=== PATIENT | male | born 1950 | race Caucasian/White ===

== ENCOUNTER 2019-04-06 10:11 | Inpatient (IN) | payer MEDICARE, OTHER ==
[2019-04-06] MEDS ORDERED: ACETAMINOPHEN TAB 500 MG TAB PO STA (10:33)
[2019-04-06] MEDS ORDERED: SODIUM CHLORIDE 0.9% 500 ML 500 ML IV STA (10:33)
--- NOTE | 2019-04-06 10:44 | ED ---
General Adult HPI <Kendall Mares - Last Filed: 04/06/19 13:22> - General Source: EMS, RN notes reviewed Mode of arrival: EMS Limitations: no limitations <Lei Fletcher - Last Filed: 04/06/19 13:27> - General Chief complaint: Weakness Stated complaint: Weakness Time Seen by Provider: 04/06/19 10:15 - History of Present Illness Initial comments: 68-year-old male with a past medical history of hyperlipidemia, hypertension presents to the emergency department for a chief complaint of weakness. Patient states he noticed this weakness this morning when he woke up. States he usually uses a wheelchair but was having difficulty getting out of bed into the wheelchair due to his weakness. Patient was recently released yesterday from a group home in [place] due to a femur fracture. States he took a cab from [place] to [place] and stayed at a hotel last night. States he is supposed to be staying with his friend here. Patient denies any cough or congestion. Denies dysuria. Denies fevers at home. Patient does state he has bilateral weeping legs. Patient has no other complaints at this time including shortness of breath, chest pain, abdominal pain, nausea or vomiting, headache, or visual changes. (Lei Fletcher) - Related Data Home Medications Medication Instructions Recorded Confirmed Acetaminophen Tab [Tylenol Tab] 650 mg PO Q4H PRN 04/06/19 04/06/19 Carvedilol 25 mg PO BID 04/06/19 04/06/19 DULoxetine HCL [Cymbalta] 90 mg PO DAILY 04/06/19 04/06/19 Furosemide [Lasix] 20 mg PO BID 04/06/19 04/06/19 HYDROcodone/APAP 5-325MG [[place] 1 tab PO Q4HR PRN 04/06/19 04/06/19 5-325] Lisinopril [Zestril] 20 mg PO DAILY 04/06/19 04/06/19 Melatonin 3 mg PO HS 04/06/19 04/06/19 Miconazole Nitrate [Zeasorb AF] 1 applic TOPICAL BID 04/06/19 04/06/19 OLANZapine [ZyPREXA] 5 mg PO HS 04/06/19 04/06/19 Pantoprazole Sodium [Protonix] 40 mg PO DAILY 04/06/19 04/06/19 Polyethylene Glycol 3350 [Miralax] 17 gm PO DAILY PRN 04/06/19 04/06/19 Potassium Chloride ER [K-Dur 20] 20 meq PO DAILY 04/06/19 04/06/19 traZODone HCL 50 mg PO HS 04/06/19 04/06/19 Allergies Allergy/AdvReac Type Severity Reaction Status Date / Time No Known Allergies Allergy Verified 04/06/19 10:45 Review of Systems ROS Other: All systems not noted in ROS Statement are negative. <Kendall Mares - Last Filed: 04/06/19 13:22> ROS Other: All systems not noted in ROS Statement are negative. <Lei Fletcher - Last Filed: 04/06/19 13:27> ROS Statement: Those systems with pertinent positive or pertinent negative responses have been documented in the HPI. Past Medical History Past Medical History: Hyperlipidemia, Hypertension History of Any Multi-Drug Resistant Organisms: None Reported Past Surgical History: No Surgical Hx Reported Past Psychological History: No Psychological Hx Reported Smoking Status: Never smoker Past Alcohol Use History: Occasional Past Drug Use History: None Reported <Lei Fletcher - Last Filed: 04/06/19 13:27> General Exam Limitations: no limitations General appearance: alert, in no apparent distress Head exam: Present: atraumatic, normocephalic, normal inspection Eye exam: Present: normal appearance, PERRL, EOMI. Absent: scleral icterus, conjunctival injection, periorbital swelling ENT exam: Present: normal exam, mucous membranes moist Neck exam: Present: normal inspection, full ROM. Absent: tenderness, meningismus, lymphadenopathy Respiratory exam: Present: normal lung sounds bilaterally. Absent: respiratory distress, wheezes, rales, rhonchi, stridor Cardiovascular Exam: Present: regular rate, normal rhythm, normal heart sounds. Absent: systolic murmur, diastolic murmur, rubs, gallop, clicks GI/Abdominal exam: Present: soft, normal bowel sounds. Absent: distended, tenderness, guarding, rebound, rigid exam: Present: other (minor intertriginous excoriation noted) Extremities exam: Present: normal capillary refill (cap refill < 2 seconds), other (erythema of the lower BLE, increased warmth, minor wheeping) Neurological exam: Present: alert Psychiatric exam: Present: normal affect, normal mood <Lei Fletcher P - Last Filed: 04/06/19 13:27> Course <Kendall Mares - Last Filed: 04/06/19 13:22> Vital Signs 04/06/19 04/06/19 10:13 12:15 Temperature 100.1 F H 99.1 F Pulse Rate 92 90 Respiratory 16 20 Rate Blood Pressure 142/67 135/62 O2 Sat by Pulse 98 94 L Oximetry - Reevaluation(s) Reevaluation #1: 04/06/19 13:23 PA supervision: I proceeded [id number] evaluation the patient he does present with complaints of weakness and fever this morning he just got out of a rehab facility where he was rehab for a left hip fracture. He does demonstrate evidence of UTI and fever he does have stasis dermatitis of both lower extremities increase erythema noted. I did discuss the case with Dr. Zamora. I do agree with the assessment and plan at this point (Kendall Mares) Medical Decision Making - Lab Data Result diagrams: 04/06/19 10:26 04/06/19 10:26 <Kendall Mares - Last Filed: 04/06/19 13:22> - Lab Data Result diagrams: 04/06/19 10:26 04/06/19 10:26 <Lei Fletcher P - Last Filed: 04/06/19 13:27> - Medical Decision Making 68-year-old male presents to the emergency department for a chief complaint of weakness. Patient has a history of hyperlipidemia hypertension. Patient was ap parently released from a rehab facility yesterday in [place] due to a left hip fracture. Came to [place] by cab because his friend lives in the area. He states that today he woke up and felt more weak than normal. Vitals do show a low-grade fever of 100.1 on presentation. Patient does have erythema of the bilateral lower extremities, minimal warmth noted, this could be stasis dermatitis. Patient has mild skin breakdown noted in the intertriginous areas of his groin. CBC is unremarkable. CMP unremarkable. Lactic acid is 0.9. However he does show evidence of urinary tract infection with 122 white blood cells and many bacteria. Patient started on Rocephin. On chest x-ray patient does have some early pulmonary edema with a BNP of 1200. Patient is on Lasix at home. This will be reordered. Dr. Mares spoke with Dr. Zamora who will admit this patient. (Lei Fletcher) - Lab Data Lab Results 04/06/19 04/06/19 04/06/19 Range/Units 10:26 10:26 10:26 WBC 9.7 (3.8-10.6) k/uL RBC 3.78 L (4.30-5.90) m/uL Hgb 11.1 L (13.0-17.5) gm/dL Hct 33.6 L (39.0-53.0) % MCV 88.9 (80.0-100.0) fL MCH 29.3 (25.0-35.0) pg MCHC 33.0 (31.0-37.0) g/dL RDW 16.2 H (11.5-15.5) % Plt Count 215 (150-450) k/uL Neutrophils % 85 % Lymphocytes % 7 % Monocytes % 6 % Eosinophils % 1 % Basophils % 0 % Neutrophils # 8.3 H (1.3-7.7) k/uL Lymphocytes # 0.6 L (1.0-4.8) k/uL Monocytes # 0.6 (0-1.0) k/uL Eosinophils # 0.1 (0-0.7) k/uL Basophils # 0.0 (0-0.2) k/uL Anisocytosis Slight PT 10.3 (9.0-12.0) sec INR 1.0 (<1.2) APTT 23.8 (22.0-30.0) sec Sodium 137 (137-145) mmol/L Potassium 4.2 (3.5-5.1) mmol/L Chloride 104 (98-107) mmol/L Carbon Dioxide 23 (22-30) mmol/L Anion Gap 10 mmol/L BUN 13 (9-20) mg/dL Creatinine 0.73 (0.66-1.25) mg/dL Est GFR (CKD-EPI)AfAm >90 (>60 ml/min/1.73 sqM) Est GFR (CKD-EPI)NonAf >90 (>60 ml/min/1.73 sqM) Glucose 108 H (74-99) mg/dL Plasma Lactic Acid Paul (0.7-2.0) mmol/L Calcium 9.0 (8.4-10.2) mg/dL Magnesium 1.7 (1.6-2.3) mg/dL Total Bilirubin 1.1 (0.2-1.3) mg/dL AST 22 (17-59) U/L ALT 16 L (21-72) U/L Alkaline Phosphatase 88 (38-126) U/L Troponin I (0.000-0.034) ng/mL NT-Pro-B Natriuret Pep pg/mL Total Protein 7.4 (6.3-8.2) g/dL Albumin 3.7 (3.5-5.0) g/dL Urine Color Urine Appearance (Clear) Urine pH (5.0-8.0) Ur Specific [place] (1.001-1.035) Urine Protein (Negative) Urine Glucose (UA) (Negative) Urine Ketones (Negative) Urine Blood (Negative) Urine Nitrite (Negative) Urine Bilirubin (Negative) Urine Urobilinogen (<2.0) mg/dL Ur Leukocyte Esterase (Negative) Urine RBC (0-5) /hpf Urine WBC (0-5) /hpf Ur Squamous Epith Cells (0-4) /hpf Urine Bacteria (None) /hpf Urine Mucus (None) /hpf 04/06/19 04/06/19 04/06/19 Range/Units 10:26 10:26 12:13 WBC (3.8-10.6) k/uL RBC (4.30-5.90) m/uL Hgb (13.0-17.5) gm/dL Hct (39.0-53.0) % MCV (80.0-100.0) fL MCH (25.0-35.0) pg MCHC (31.0-37.0) g/dL RDW (11.5-15.5) % Plt Count (150-450) k/uL Neutrophils % % Lymphocytes % % Monocytes % % Eosinophils % % Basophils % % Neutrophils # (1.3-7.7) k/uL Lymphocytes # (1.0-4.8) k/uL Monocytes # (0-1.0) k/uL Eosinophils # (0-0.7) k/uL Basophils # (0-0.2) k/uL Anisocytosis PT (9.0-12.0) sec INR (<1.2) APTT (22.0-30.0) sec Sodium (137-145) mmol/L Potassium (3.5-5.1) mmol/L Chloride (98-107) mmol/L Carbon Dioxide (22-30) mmol/L Anion Gap mmol/L BUN (9-20) mg/dL Creatinine (0.66-1.25) mg/dL Est GFR (CKD-EPI)AfAm (>60 ml/min/1.73 sqM) Est GFR (CKD-EPI)NonAf (>60 ml/min/1.73 sqM) Glucose (74-99) mg/dL Plasma Lactic Acid Paul 0.9 (0.7-2.0) mmol/L Calcium (8.4-10.2) mg/dL Magnesium (1.6-2.3) mg/dL Total Bilirubin (0.2-1.3) mg/dL AST (17-59) U/L ALT (21-72) U/L Alkaline Phosphatase (38-126) U/L Troponin I 0.016 (0.000-0.034) ng/mL NT-Pro-B Natriuret Pep 1240 pg/mL Total Protein (6.3-8.2) g/dL Albumin (3.5-5.0) g/dL Urine Color Urine Appearance (Clear) Urine pH (5.0-8.0) Ur Specific [place] (1.001-1.035) Urine Protein (Negative) Urine Glucose (UA) (Negative) Urine Ketones (Negative) Urine Blood (Negative) Urine Nitrite (Negative) Urine Bilirubin (Negative) Urine Urobilinogen (<2.0) mg/dL Ur Leukocyte Esterase (Negative) Urine RBC (0-5) /hpf Urine WBC (0-5) /hpf Ur Squamous Epith Cells (0-4) /hpf Urine Bacteria (None) /hpf Urine Mucus (None) /hpf 04/06/19 Range/Units 12:25 WBC (3.8-10.6) k/uL RBC (4.30-5.90) m/uL Hgb (13.0-17.5) gm/dL Hct (39.0-53.0) % MCV (80.0-100.0) fL MCH (25.0-35.0) pg MCHC (31.0-37.0) g/dL RDW (11.5-15.5) % Plt Count (150-450) k/uL Neutrophils % % Lymphocytes % % Monocytes % % Eosinophils % % Basophils % % Neutrophils # (1.3-7.7) k/uL Lymphocytes # (1.0-4.8) k/uL Monocytes # (0-1.0) k/uL Eosinophils # (0-0.7) k/uL Basophils # (0-0.2) k/uL Anisocytosis PT (9.0-12.0) sec INR (<1.2) APTT (22.0-30.0) sec Sodium (137-145) mmol/L Potassium (3.5-5.1) mmol/L Chloride (98-107) mmol/L Carbon Dioxide (22-30) mmol/L Anion Gap mmol/L BUN (9-20) mg/dL Creatinine (0.66-1.25) mg/dL Est GFR (CKD-EPI)AfAm (>60 ml/min/1.73 sqM) Est GFR (CKD-EPI)NonAf (>60 ml/min/1.73 sqM) Glucose (74-99) mg/dL Plasma Lactic Acid Paul (0.7-2.0) mmol/L Calcium (8.4-10.2) mg/dL Magnesium (1.6-2.3) mg/dL Total Bilirubin (0.2-1.3) mg/dL AST (17-59) U/L ALT (21-72) U/L Alkaline Phosphatase (38-126) U/L Troponin I (0.000-0.034) ng/mL NT-Pro-B Natriuret Pep pg/mL Total Protein (6.3-8.2) g/dL Albumin (3.5-5.0) g/dL Urine Color Yellow Urine Appearance Cloudy (Clear) Urine pH 6.5 (5.0-8.0) Ur Specific [place] 1.024 (1.001-1.035) Urine Protein 1+ H (Negative) Urine Glucose (UA) Negative (Negative) Urine Ketones Negative (Negative) Urine Blood Trace H (Negative) Urine Nitrite Positive (Negative) Urine Bilirubin Negative (Negative) Urine Urobilinogen <2.0 (<2.0) mg/dL Ur Leukocyte Esterase Large H (Negative) Urine RBC 10 H (0-5) /hpf Urine WBC 122 H (0-5) /hpf Ur Squamous Epith Cells 1 (0-4) /hpf Urine Bacteria Many H (None) /hpf Urine Mucus Rare H (None) /hpf Disposition <Kendall Mares - Last Filed: 04/06/19 13:22> Is patient prescribed a controlled substance at d/c from ED?: No Time of Disposition: 13:27 <Lei Fletcher - Last Filed: 04/06/19 13:27> Clinical Impression: Urinary tract infection, Fever Disposition: ADMITTED IP TO THIS HOSP Condition: Fair Referrals: None,Stated [Primary Care Provider] - 1-2 days
--- NOTE | 2019-04-06 11:47 | XR ---
EXAMINATION TYPE: XR chest 2V DATE OF EXAM: 04/06/2019 COMPARISON: None INDICATION: Weakness TECHNIQUE: Frontal and lateral views of the chest are obtained. FINDINGS: The heart size is prominent. The pulmonary vasculature is prominent. Diffuse increased lung markings are present at the lung bases. Clinical consideration for early pulmo nary edema is recommended. IMPRESSION: 1. There may be some early pulmonary edema present. Pulmonary vascular prominence and cardiomegaly is evident. Follow-up can be performed as clinically indicated.
[2019-04-06] MEDS ORDERED: cefTRIAXone IN SWFI 1,000 MG/10 ML SYRINGE IVP STA (12:02)
[2019-04-06 12:04] LABS: Anisocytosis Slight; Basophils % (A) 0 %; Eosinophils # (A) 0.1 k/uL (0-0.7); Eosinophils % (A) 1 %; HCT 33.6 % (39.0-53.0); HGB 11.1 gm/dL (13.0-17.5); Lymphocytes # (A) 0.6 k/uL (1.0-4.8); Lymphocytes % (A) 7 %; MCH 29.3 pg (25.0-35.0); MCV 88.9 fL (80.0-100.0); Mean Platelet Volume 7.9; Monocytes # (A) 0.6 k/uL (0-1.0); Monocytes % (A) 6 %; Neutrophils # (A) 8.3 k/uL (1.3-7.7); Neutrophils % (A) 85 %; Platelet Count 215 k/uL (150-450); RBC 3.78 m/uL (4.30-5.90); RDW 16.2 % (11.5-15.5); WBC 9.7 k/uL (3.8-10.6)
[2019-04-06 12:15] LABS: African American GFR (CKD) >90 (>60 ml/min/1.73 sqM); Albumin 3.7 g/dL (3.5-5.0); Anion Gap 10 mmol/L; Blood Urea Nitrogen 13 mg/dL (9-20); Carbon Dioxide 23 mmol/L (22-30); Chloride 104 mmol/L (98-107); Glucose 108 mg/dL (74-99); Sodium 137 mmol/L (137-145); Total Bilirubin 1.1 mg/dL (0.2-1.3); Total Protein 7.4 g/dL (6.3-8.2)
[2019-04-06 12:33] LABS: ALT 16 U/L (21-72); AST 22 U/L (17-59); Partial Thromboplastin Time 23.8 sec (22.0-30.0); Potassium 4.2 mmol/L (3.5-5.1); Prothrombin Time 10.3 sec (9.0-12.0)
[2019-04-06 12:34] LABS: Alkaline Phosphatase 88 U/L (38-126); Magnesium 1.7 mg/dL (1.6-2.3)
[2019-04-06 12:51] LABS: Appearance,Urine Cloudy (Clear); Bacteria,Urine Many /hpf; Bilirubin,Urine Negative (Negative); Blood,Urine Trace (Negative); Color,Urine Yellow; Glucose,Urine (UA) Negative (Negative); Ketones,Urine Negative (Negative); Leukocyte Esterase,Urine Large (Negative); Mucus,Urine Rare /hpf; Nitrite,Urine Positive (Negative); PH, Urine 6.5 (5.0-8.0); Protein,Urine 1+ (Negative); RBC,Urine 10 /hpf (0-5); Specific Gravity,Urine 1.024 (1.001-1.035); Squamous Epithelial Cell,Urine 1 /hpf (0-4); Urobilinogen,Urine <2.0 mg/dL (<2.0); WBC,Urine 122 /hpf (0-5)
[2019-04-06] MEDS ORDERED: NALOXONE 0.4 MG/ML 1 ML VIAL IV PRN (13:28)
[2019-04-06] MEDS ORDERED: ACETAMINOPHEN TAB 325 MG TAB PO PRN (13:29)
[2019-04-06] MEDS ORDERED: POLYETHYLENE GLYCOL 3350 17 GM POWD.PACK PO PRN (13:29)
[2019-04-06] MEDS: SODIUM CHLORIDE 0.9% 1,000 ML IV SCH (14:24)
[2019-04-06] MEDS ORDERED: FUROSEMIDE 20 MG TAB PO SCH (16:00)
[2019-04-06] MEDS: CARVEDILOL 12.5 MG TAB PO SCH (16:03)
[2019-04-06] MEDS: HYDROcodone/APAP 5-325MG 1 EACH TAB PO PRN ×2 (16:04→20:21)
[2019-04-06] MEDS: HEPARIN SODIUM,PORCINE 5,000 UNIT/ML 1 ML VIAL SQ SCH (19:26)
[2019-04-06] MEDS: traZODone HCL 50 MG TAB PO SCH (20:21)
[2019-04-06] MEDS: OLANZapine 5 MG TAB PO SCH (21:35)
[2019-04-06] MEDS: IBUPROFEN 600 MG TAB PO PRN (21:36)
[2019-04-07] MEDS: HEPARIN SODIUM,PORCINE 5,000 UNIT/ML 1 ML VIAL SQ SCH ×3 (00:29→16:12)
--- NOTE | 2019-04-07 00:48 | P.HPIM ---
History of Present Illness H&P Date: 04/06/19 Chief Complaint: Generalized weakness Patient is a 68-year-old male with a past medical history of hypertension, hyperlipidemia and osteoarthritis and chronic lower extremity swelling and venous stasis changes came to ER with complaints of generalized weakness. Patient states he noticed this weakness this morning when he woke up. States he usually uses a wheelchair but was having difficulty getting out of bed into the wheelchair due to his weakness. Patient was recently released yesterday from a group home in [place] due to a femur fracture. States he took a cab from [place] to [place] and stayed at a hotel last night. States he is supposed to be staying with his friend here. Patient denies any cough or congestion. Denies dysuria. Denies fevers at home. Patient does state he has bilateral weeping legs. Patient has no other complaints at this time including shortness of breath, chest pain, abdominal pain, nausea or vomiting, headache, or visual changes. T-max 100.1 on admission Urinalysis showed cloudy with large leukocyte esterase and WBC 122 WBC 9.7, Hemoglobin 11.1, BNP 1240 Lactic acid 0.9 and troponin 0.016, albumin 3.7 Chest x-ray showed there may be some early pulmonary edema present. Pulmonary vascular prominence and cardiomegaly is evident. Review of Systems Constitutional: Patient denies any fever or chills . Generalized weakness.. Abdomen: Patient denied nausea vomiting and diarrhea and abdominal pain. Cardiovascular: Patient denies any chest pain. patient does have shortness of breath and leg swelling. Respiratory: patient denied any cough is from production. No shortness of breath Neurologic: Patient denied any numbness or tingling headache. Musculoskeletal: Patient denies any complaints of joint swelling or deformity. Skin: Negative Psychiatric: Negative Endocrine: No heat or cold intolerance. No recent weight gain. Genitourinary: No dysuria or hematuria. All other 14 point ROS negative except the above Past Medical History Past Medical History: Hyperlipidemia, Hypertension, Osteoarthritis (OA), Skin Disorder Additional Past Medical History / Comment(s): 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, mostly below knees History of Any Multi-Drug Resistant Organisms: None Reported Past Surgical History: No Surgical Hx Reported Past Anesthesia/Blood Transfusion Reactions: No Reported Reaction Past Psychological History: No Psychological Hx Reported Smoking Status: Never smoker Past Alcohol Use History: Occasional Past Drug Use History: None Reported - Past Family History Father Family Medical History: No Reported History Medications and Allergies Home Medications Medication Instructions Recorded Confirmed Type Acetaminophen Tab [Tylenol Tab] 650 mg PO Q4H PRN 04/06/19 04/06/19 History Carvedilol 25 mg PO BID 04/06/19 04/06/19 History DULoxetine HCL [Cymbalta] 90 mg PO DAILY 04/06/19 04/06/19 History Furosemide [Lasix] 20 mg PO BID 04/06/19 04/06/19 History HYDROcodone/APAP 5-325MG [[place] 1 tab PO Q4HR PRN 04/06/19 04/06/19 History 5-325] Lisinopril [Zestril] 20 mg PO DAILY 04/06/19 04/06/19 History Melatonin 3 mg PO HS 04/06/19 04/06/19 History Miconazole Nitrate [Zeasorb AF] 1 applic TOPICAL BID 04/06/19 04/06/19 History OLANZapine [ZyPREXA] 5 mg PO HS 04/06/19 04/06/19 History Pantoprazole Sodium [Protonix] 40 mg PO DAILY 04/06/19 04/06/19 History Polyethylene Glycol 3350 [Miralax] 17 gm PO DAILY PRN 04/06/19 04/06/19 History Potassium Chloride ER [K-Dur 20] 20 meq PO DAILY 04/06/19 04/06/19 History traZODone HCL 50 mg PO HS 04/06/19 04/06/19 History Allergies Allergy/AdvReac Type Severity Reaction Status Date / Time No Known Allergies Allergy Verified 04/06/19 10:45 Physical Exam Vitals: Vital Signs Temp Pulse Pulse Resp BP BP Pulse Ox 04/06/19 15:00 98.1 F 90 18 138/70 97 04/06/19 14:26 90 16 151/81 99 04/06/19 12:15 99.1 F 90 20 135/62 94 L 04/06/19 10:13 100.1 F H 92 16 142/67 98 Intake and Output 04/06/19 04/06/19 04/06/19 06:59 14:59 22:59 Other: Voiding Method Urinal Diaper Incontinent # Voids 1 Weight 131.542 kg PHYSICAL EXAMINATION: Patient is lying in the bed comfortably, no acute distress, awake alert and o riented.. HEENT: Normocephalic. Neck is supple. Pupils reactive. Nostrils clear. Oral cavity is moist. Ears reveal no drainage. Neck reveals no JVD, carotid bruits, or thyromegaly. CHEST EXAMINATION: Trachea is central. Symmetrical expansion. Bibasilar diminished air entry. Minimal rhonchi. Lung neely clear to auscultation and percussion. CARDIAC: Normal S1, S2 with no gallops. No murmurs ABDOMEN: Soft. Bowel sounds normal. No organomegaly. No abdominal bruits. Extremities: Lower extremities 3+ edema. Chronic venous stasis changes. No clubbing or cyanosis Neurologically awake, alert, oriented x3 with well-coordinated movements. No focal deficits noted Skin: No rash or skin lesions. Psychiatric: Coperative. Nonsuicidal Musculoskeletal: No joint swelling or deformity. Normal range of motion. Results CBC & Chem 7: 04/06/19 10:26 04/06/19 10:26 Labs: Abnormal Lab Results - Last 24 Hours (Table) 04/06/19 04/06/19 04/06/19 Range/Units 10:26 10:26 12:25 RBC 3.78 L (4.30-5.90) m/uL Hgb 11.1 L (13.0-17.5) gm/dL Hct 33.6 L (39.0-53.0) % RDW 16.2 H (11.5-15.5) % Neutrophils # 8.3 H (1.3-7.7) k/uL Lymphocytes # 0.6 L (1.0-4.8) k/uL Glucose 108 H (74-99) mg/dL ALT 16 L (21-72) U/L Urine Protein 1+ H (Negative) Urine Blood Trace H (Negative) Ur Leukocyte Esterase Large H (Negative) Urine RBC 10 H (0-5) /hpf Urine WBC 122 H (0-5) /hpf Urine Bacteria Many H (None) /hpf Urine Mucus Rare H (None) /hpf Thrombosis Risk Factor Assmnt - DVT/VTE Prophylaxis DVT/VTE Prophylaxis: Pharmacologic Prophylaxis ordered - Choose All That Apply Each Factor Represents 1 point: Medical pt on bed rest, Obesity (BMI >25), Swollen legs (current) Each Risk Factor Represents 2 Points: Age 61-74 years, Patient confined to bed Other congenital or acquired thrombophilia - If yes, enter type in comment: No Thrombosis Risk Factor Assessment Total Risk Factor Score: 7 Thrombosis Risk Factor Assessment Level: High Risk Assessment and Plan Assessment: Acute urinary tract infection Acute CHF. Ejection fraction unknown. Patient does have elevated pulmonary edema and vascular congestion , BNP 1240 Chronic lower extremity swelling. Generalized weakness Recent left hip fracture. Was at [facility] Hypertension Hyperlipidemia Osteoarthritis Occasional alcohol abuse. Morbid obesity with BMI 44.1 DVT prophylaxis with heparin subcu Plan: Patient will be continued on antibiotics in the form of ceftriaxone. Follow-up urine culture reports. Continue with IV Lasix 20 mg twice daily and obtain 2-D echocardiogram to evaluate LV function. Follow-up renal function. Continue with home blood pressure medications and pain management. PTOT consult. Further recommendations based on the clinical course. Time with Patient: Greater than 30
[2019-04-07 07:31] LABS: Basophils % (A) 1 %; Eosinophils # (A) 0.1 k/uL (0-0.7); Eosinophils % (A) 2 %; HCT 37.1 % (39.0-53.0); HGB 11.8 gm/dL (13.0-17.5); Hypochromasia Slight; Lymphocytes # (A) 0.8 k/uL (1.0-4.8); Lymphocytes % (A) 15 %; MCH 28.7 pg (25.0-35.0); MCHC 31.8 g/dL (31.0-37.0); MCV 90.2 fL (80.0-100.0); Mean Platelet Volume 7.2; Monocytes # (A) 0.5 k/uL (0-1.0); Monocytes % (A) 9 %; Neutrophils # (A) 3.8 k/uL (1.3-7.7); Neutrophils % (A) 69 %; Platelet Count 188 k/uL (150-450); RBC 4.12 m/uL (4.30-5.90); RDW 15.8 % (11.5-15.5); WBC 5.5 k/uL (3.8-10.6)
[2019-04-07 07:39] LABS: African American GFR (CKD) >90 (>60 ml/min/1.73 sqM); Anion Gap 13 mmol/L; Blood Urea Nitrogen 17 mg/dL (9-20); Carbon Dioxide 24 mmol/L (22-30); Chloride 105 mmol/L (98-107); Glucose 105 mg/dL (74-99); Potassium 3.8 mmol/L (3.5-5.1); Sodium 142 mmol/L (137-145)
[2019-04-07] MEDS: DULoxetine HCL 30 MG CAPSULE.DR PO SCH (07:53)
[2019-04-07] MEDS: HYDROcodone/APAP 5-325MG 1 EACH TAB PO PRN ×3 (07:53→20:43)
--- NOTE | 2019-04-07 07:53 | XR ---
EXAMINATION TYPE: XR Hip LT and AP Pelvis DATE OF EXAM: 04/07/2019 COMPARISON: NONE HISTORY: Pelvic and left hip pain, healing fracture. TECHNIQUE: A single AP view of the pelvis is obtained. Two views of the left hip are obtained. FINDINGS: There is no acute fracture/dislocation evident in the pelvis. The sacroiliac joints appea r symmetric and unremarkable. There is advanced degenerative change both hips with lateral subluxatio n of femoral heads which have both loss normal spherical shape, there is [id number] formation with subchondral cystic change and heterotopic ossification. Vascular calcification overlies the bilateral pelvis. Incidental moderate to severe spurring and disc space narrowing as well as vacuum disc pheno christopher L4-L5 level. Two views of left hip show no acute fracture or dislocation. No suspicious focal lytic or sclerotic lesion seen in the proximal left femur. The overlying soft tissue is unremarkable. IMPRESSION: There are advanced degenerative changes in both hips.
[2019-04-07] MEDS: LISINOPRIL 20 MG TAB PO SCH (07:54)
[2019-04-07] MEDS: FUROSEMIDE 10 MG/ML 2 ML VIAL IV SCH ×2 (07:54→16:13)
[2019-04-07] MEDS: POTASSIUM CHLORIDE ER 20 MEQ TAB.ER PO SCH (07:54)
[2019-04-07] MEDS: PANTOPRAZOLE 40 MG TABLET PO SCH (07:54)
[2019-04-07] MEDS: CARVEDILOL 12.5 MG TAB PO SCH ×2 (07:55→16:13)
[2019-04-07] MEDS: IBUPROFEN 600 MG TAB PO PRN ×2 (08:00→16:13)
[2019-04-07] MEDS ORDERED: FUROSEMIDE 10 MG/ML 2 ML VIAL IV SCH (09:00)
[2019-04-07] MEDS: SODIUM CHLORIDE 0.9% 1,000 ML IV SCH (16:12)
[2019-04-07] MEDS: OLANZapine 5 MG TAB PO SCH (20:42)
[2019-04-07] MEDS: traZODone HCL 50 MG TAB PO SCH (20:43)
[2019-04-08] MEDS: HEPARIN SODIUM,PORCINE 5,000 UNIT/ML 1 ML VIAL SQ SCH ×4 (00:16→23:26)
[2019-04-08] MEDS: HYDROcodone/APAP 5-325MG 1 EACH TAB PO PRN ×5 (00:34→21:56)
[2019-04-08] MEDS: CARVEDILOL 12.5 MG TAB PO SCH ×2 (07:44→17:39)
[2019-04-08] MEDS: PANTOPRAZOLE 40 MG TABLET PO SCH (07:44)
[2019-04-08] MEDS: POTASSIUM CHLORIDE ER 20 MEQ TAB.ER PO SCH (07:44)
[2019-04-08] MEDS: LISINOPRIL 20 MG TAB PO SCH (07:44)
[2019-04-08] MEDS: DULoxetine HCL 30 MG CAPSULE.DR PO SCH (07:45)
[2019-04-08] MEDS: FUROSEMIDE 10 MG/ML 2 ML VIAL IV SCH ×2 (07:45→21:04)
--- NOTE | 2019-04-08 12:38 | ECHOF ---
Referral Reason:chf MEASUREMENTS -------- HEIGHT: 172.7 cm WEIGHT: 144.7 kg BP: 114/70 RVIDd: 3.8 cm (< 3.3) IVSd: 1.4 cm (0.6 - 1.1) LVIDd: 5.1 cm (3.9 - 5.3) LVPWd: 1.4 cm (0.6 - 1.1) IVSs: 2.1 cm LVIDs: 3.3 cm LVPWs: 2.1 cm LA Diam: 3.4 cm (2.7 - 3.8) LAESV Index (A-L): 29.88 ml/m Ao Diam: 4.3 cm (2.0 - 3.7) AV Cusp: 2.6 cm (1.5 - 2.6) MV EXCURSION: 16.399 mm (> 18.000) MV EF SLOPE: 54 mm/s (70 - 150) EPSS: 0.7 cm MV E Gregorio: 0.98 m/s MV DecT: 328 ms MV A Gregorio: 1.01 m/s MV E/A Ratio: 0.97 AR PHT: 773 ms RAP: 5.00 mmHg RVSP: 19.91 mmHg FINDINGS -------- Sinus rhythm. This was a technically difficult study with suboptimal views. The left ventricular size is normal. There is moderate concentric left ventricular hypertrophy. O verall left ventricular systolic function is normal with, an EF between 55 - 60 %. The diastolic fi lling pattern indicates impaired relaxation 23.21. The right ventricle is mild to moderately enlarged. LA is midly dilated 29-33ml/m2. The right atrium is normal in size. 2 ml of Lumason was utilized for enhancement of images. There is mild aortic valve sclerosis. There is mild aortic regurgitation. The mitral valve leaflets are mildly thickened. Mild mitral annular calcification present. Mild m itral regurgitation is present. Trace tricuspid regurgitation present. The pulmonic valve was not well visualized. The aortic root is dilated measuring 4.3cm. Normal inferior vena cava with normal inspiratory collapse consistent with estimated right atrial pre ssure of 5 mmHg. There is no pericardial effusion. CONCLUSIONS -------- 1. Sinus rhythm. 2. This was a technically difficult study with suboptimal views. 3. The left ventricular size is normal. 4. There is moderate concentric left ventricular hypertrophy. 5. Overall left ventricular systolic function is normal with, an EF between 55 - 60 %. 6. The diastolic filling pattern indicates impaired relaxation 23.21.. 7. The right ventricle is mild to moderately enlarged. 8. LA is midly dilated 29-33ml/m2. 9. The right atrium is normal in size. 10. 2 ml of Lumason was utilized for enhancement of images. 11. There is mild aortic valve sclerosis. 12. There is mild aortic regurgitation. 13. The mitral valve leaflets are mildly thickened. 14. Mild mitral annular calcification present. 15. Mild mitral regurgitation is present. 16. Trace tricuspid regurgitation present. 17. The pulmonic valve was not well visualized. 18. The aortic root is dilated measuring 4.3cm. 19. Normal inferior vena cava with normal inspiratory collapse consistent with estimated right atrial pressure of 5 mmHg. 20. There is no pericardial effusion. STRAP MACHINE OPERATOR AUTOMATIC: Matilda Del Angel RDCS
[2019-04-08] MEDS: SODIUM CHLORIDE 0.9% 1,000 ML IV SCH (13:01)
--- NOTE | 2019-04-08 17:12 | P.PN ---
Subjective Progress Note Date: 04/07/19 Principal diagnosis: Generalized weakness Acute urinary tract infection Patient is a 68-year-old male with a past medical history of hypertension, hyperlipidemia and osteoarthritis and chronic lower extremity swelling and venous stasis changes came to ER with complaints of generalized weakness. Patient states he noticed this weakness this morning when he woke up. States he usually uses a wheelchair but was having difficulty getting out of bed into the wheelchair due to his weakness. Patient was recently released yesterday from a pen[facility]iary in [place] due to a femur fracture. States he took a cab from [place] to [place] and stayed at a hotel last night. States he is supposed to be staying with his friend here. Patient denies any cough or congestion. Denies dysuria. Denies fevers at home. Patient does state he has bilateral weeping legs. Patient has no other complaints at this time including shortness of breath, chest pain, abdominal pain, nausea or vomiting, headache, or visual changes. T-max 100.1 on admission Urinalysis showed cloudy with large leukocyte esterase and WBC 12.2 WBC 9.7, Hemoglobin 11.1, BNP 1240 Lactic acid 0.9 and troponin 0.016, albumin 3.7 Chest x-ray showed there may be some early pulmonary edema present. Pulmonary vascular prominence and cardiomegaly is evident. 04/03/2019 Patient is currently sitting in a chair comfortably. Leg swelling slightly improved. Urine culture is still pending at this time otherwise patient is being continued on antibiotics the form of ceftriaxone. No fever no chills. Still having generalized weakness and unable to ambulate without support. No chest pain or worsening shortness of breath. All other review of systems negative except above Current medications reviewed. Objective - Vital Signs Vital signs: Vital Signs Temp 97.8 F 04/07/19 11:42 Pulse 65 04/07/19 14:38 Resp 18 04/07/19 14:38 BP 120/64 04/07/19 11:42 Pulse Ox 95 04/07/19 11:42 Intake & Output 04/06/19 04/07/19 04/07/19 18:59 06:59 18:59 Intake Total 140 340 Balance 140 340 Weight 131.542 kg Intake: Intake, IV Titration 140 340 Amount Sodium Chloride 0.9% 1, 140 240 000 ml @ 20 mls/hr IV . Q24H [facility] Rx#:[id number] cefTRIAXone 1 gm In 100 Sodium Chloride 0.9% 50 ml @ 100 mls/hr IVPB Q24HR [facility] Rx#:[id number] Other: Voiding Method Urinal Urinal Urinal Diaper Diaper Incontinent Incontinent # Voids 1 1 3 - Exam PHYSICAL EXAMINATION: Patient is lying in the bed comfortably, no acute distress, awake alert and oriented.. HEENT: Normocephalic. Neck is supple. Pupils reactive. Nostrils clear. Oral cavity is moist. Ears reveal no drainage. Neck reveals no JVD, carotid bruits, or thyromegaly. CHEST EXAMINATION: Trachea is central. Symmetrical expansion. Bibasilar dimi nished air entry. Minimal rhonchi. Lung neely clear to auscultation and percussion. CARDIAC: Normal S1, S2 with no gallops. No murmurs ABDOMEN: Soft. Bowel sounds normal. No organomegaly. No abdominal bruits. Extremities: Lower extremities 3+ edema. Chronic venous stasis changes. No clubbing or cyanosis Neurologically awake, alert, oriented x3 with well-coordinated movements. No focal deficits noted Skin: No rash or skin lesions. Psychiatric: Coperative. Nonsuicidal Musculoskeletal: No joint swelling or deformity. Normal range of motion. - Labs CBC & Chem 7: 04/07/19 06:32 04/07/19 06:32 Labs: Abnormal Lab Results - Last 24 Hours (Table) 04/07/19 04/07/19 Range/Units 06:32 06:32 RBC 4.12 L (4.30-5.90) m/uL Hgb 11.8 L (13.0-17.5) gm/dL Hct 37.1 L (39.0-53.0) % RDW 15.8 H (11.5-15.5) % Lymphocytes # 0.8 L (1.0-4.8) k/uL Glucose 105 H (74-99) mg/dL Microbiology - Last 24 Hours (Table) 04/06/19 10:26 Blood Culture - Preliminary Blood No Growth after 24 hours 04/06/19 12:25 Urine Culture - Preliminary Urine,Voided Assessment and Plan Assessment: Acute urinary tract infection Acute CHF. Ejection fraction unknown. Patient does have elevated pulmonary edema and vascular congestion , BNP 1240 Chronic lower extremity swelling. Generalized weakness Recent left hip fracture. Was at [facility] Hypertension Hyperlipidemia Osteoarthritis Occasional alcohol abuse. Morbid obesity with BMI 44.1 DVT prophylaxis with heparin subcu Plan: Patient will be continued on antibiotics in the form of ceftriaxone. Follow-up urine culture reports. Continue with IV Lasix 20 mg twice daily and obtain 2-D echocardiogram to evaluate LV function. Follow-up renal function. Continue with home blood pressure medications and pain management. PTOT consult. Further recommendations based on the clinical course. Time with Patient: Greater than 30
--- NOTE | 2019-04-08 18:26 | P.PN ---
Subjective Progress Note Date: 04/08/19 Principal diagnosis: This is a 68-year-old male who was recently admitted for generalized weakness and UTI and is being closely monitored. PT/OT was consulted as the patient states that he has weakness and was recently at a rehab facility for difficulty in ambulating without support. Patient had an xray of the hips and pelvis showing no acute fracture/dislocation evident in the pelvis or left hip with advanced degenerative changes in both hips. Echo done today shows an EF of 55- 60% with mild aortic and mitral regurgitation. Urine culture shows gram negative bacilli thus far and awaiting finalization at this time. Patient denies any chest pain, shortness of breath, or palpitations at this time. Patient denies any nausea or vomiting and has been tolerating diet. Patient is afebrile. Patient has a friend at the bedside and is conversing and laughing with friend. Patient appears to be in no acute distress sitting in the chair next to the bed. Social work is following as the patient states that he is homeless and has no money. Guarded prognosis. Objective - Vital Signs Vital signs: Vital Signs Temp 97.5 F L 04/08/19 04:57 Pulse 67 04/08/19 04:57 Resp 16 04/08/19 04:57 BP 114/70 04/08/19 04:57 Pulse Ox 93 L 04/08/19 04:57 Intake & Output 04/07/19 04/08/19 04/08/19 18:59 06:59 18:59 Intake Total 340 670 50 Output Total 300 Balance 340 370 50 Weight 144.9 kg Intake: Intake, IV Titration 340 80 50 Amount Sodium Chloride 0.9% 1, 240 80 000 ml @ 20 mls/hr IV . Q24H [facility] Rx#:[id number] cefTRIAXone 1 gm In 100 50 Sodium Chloride 0.9% 50 ml @ 100 mls/hr IVPB Q24HR [facility] Rx#:[id number] Oral 590 Output: Urine 300 Other: Voiding Method Urinal Urinal Urinal # Voids 3 1 # Bowel Movements 1 - Exam Gen: This is a 68 year old male sitting up in the chair in no acute distress. Vital signs are stable. HEENT: Head is atraumatic, normocephalic. Pupils equal, round. Sclerae is anicteric. NECK: Supple. No JVD. No lymphadenopathy. No thyromegaly. LUNGS: Clear to auscultation. No wheezes or rhonchi. No intercostal retractions. HEART: Regular rate and rhythm. No murmur. ABDOMEN: Soft. Bowel sounds are present. No masses. No tenderness. EXTREMITIES: Bilateral lower extremity edema, 3+. No calf tenderness. NEUROLOGICAL: Patient is awake, alert and oriented x3. Cranial nerves 2 through 12 are grossly intact. - Labs CBC & Chem 7: 04/07/19 06:32 04/07/19 06:32 Labs: Microbiology - Last 24 Hours (Table) 04/06/19 10:26 Blood Culture - Preliminary Blood No Growth after 48 hours 04/06/19 12:25 Urine Culture - Preliminary Urine,Voided Gram Neg Bacilli Assessment and Plan Assessment: Acute urinary tract infection; cultures preliminary show gram negative bacilli. On IV rocephin Acute CHF. Echo done today showing an ejection fraction of 55-60%. Patient do es have elevated pulmonary edema and vascular congestion, BNP was 1240 Chronic lower extremity swelling, 3+ Generalized weakness Recent left hip fracture. Was at [facility]. xray of the left hip show no fracture or dislocation at this time. Hypertension Hyperlipidemia Osteoarthritis Occasional alcohol abuse morbid obesity with BMI 44.1 DVT prophylaxis with heparin subq Recommendations and discussion: Recommend to continue current medications, management, and symptomatic treatment. PT/OT following. Social work is following and assisting with possible placement as the patient is homeless. Continue to monitor vital signs and labs closely. Continue on IV antibiotic therapy of Rocephin until cultures finalize. Guarded prognosis. Further recommendations to follow. Possible discharge in 24- 48 hours.
[2019-04-08] MEDS: IBUPROFEN 600 MG TAB PO PRN (19:19)
[2019-04-08] MEDS: OLANZapine 5 MG TAB PO SCH (21:04)
[2019-04-08] MEDS: traZODone HCL 50 MG TAB PO SCH (21:04)
[2019-04-09] MEDS: PANTOPRAZOLE 40 MG TABLET PO SCH (07:44)
[2019-04-09] MEDS: CARVEDILOL 12.5 MG TAB PO SCH ×2 (07:45→17:58)
[2019-04-09] MEDS: HYDROcodone/APAP 5-325MG 1 EACH TAB PO PRN ×4 (07:45→20:36)
[2019-04-09] MEDS: HEPARIN SODIUM,PORCINE 5,000 UNIT/ML 1 ML VIAL SQ SCH ×3 (07:45→23:17)
[2019-04-09] MEDS: FUROSEMIDE 10 MG/ML 2 ML VIAL IV SCH (07:46)
[2019-04-09] MEDS: DULoxetine HCL 30 MG CAPSULE.DR PO SCH (07:46)
[2019-04-09] MEDS: LISINOPRIL 20 MG TAB PO SCH (07:46)
[2019-04-09] MEDS: POTASSIUM CHLORIDE ER 20 MEQ TAB.ER PO SCH (07:46)
[2019-04-09] MEDS ORDERED: PIPERACILLIN-TAZOBACTAM 3.375 GM in SODIUM CHLORIDE 0.9% 100 ML IVPB SCH (09:00)
[2019-04-09 10:26] LABS: African American GFR (CKD) >90 (>60 ml/min/1.73 sqM); Anion Gap 10 mmol/L; Blood Urea Nitrogen 30 mg/dL (9-20); Carbon Dioxide 24 mmol/L (22-30); Chloride 108 mmol/L (98-107); Glucose 104 mg/dL (74-99); Potassium 4.3 mmol/L (3.5-5.1); Sodium 142 mmol/L (137-145)
[2019-04-09 10:48] LABS: Anisocytosis Slight; Basophils % (A) 1 %; Eosinophils # (A) 0.3 k/uL (0-0.7); Eosinophils % (A) 7 %; HGB 11.5 gm/dL (13.0-17.5); Hypochromasia Slight; Lymphocytes # (A) 1.2 k/uL (1.0-4.8); Lymphocytes % (A) 25 %; MCH 29.6 pg (25.0-35.0); MCHC 32.9 g/dL (31.0-37.0); MCV 89.9 fL (80.0-100.0); Mean Platelet Volume 7.6; Monocytes # (A) 0.4 k/uL (0-1.0); Monocytes % (A) 9 %; Neutrophils # (A) 2.6 k/uL (1.3-7.7); Neutrophils % (A) 56 %; Platelet Count 248 k/uL (150-450); Poikilocytosis Slight; RBC 3.89 m/uL (4.30-5.90); RDW 16.3 % (11.5-15.5); WBC 4.7 k/uL (3.8-10.6)
[2019-04-09] MEDS: SODIUM CHLORIDE 0.9% 1,000 ML IV SCH (11:23)
[2019-04-09] MEDS: ERTAPENEM 1 GM in SODIUM CHLORIDE 0.9% 50 ML IVPB SCH (13:13)
--- NOTE | 2019-04-09 15:05 | P.PN ---
Subjective Progress Note Date: 04/09/19 Principal diagnosis: This is a 68-year-old male who was recently admitted for generalized weakness and UTI and is being closely monitored. PT/OT was consulted as the patient states that he has weakness and was recently at a rehab facility for difficulty in ambulating without support. Patient had an xray of the hips and pelvis showing no acute fracture/dislocation evident in the pelvis or left hip with advanced degenerative changes in both hips. Echo done today shows an EF of 55- 60% with mild aortic and mitral regurgitation. Urine culture shows gram negative bacilli thus far and awaiting finalization at this time. Patient denies any chest pain, shortness of breath, or palpitations at this time. Patient denies any nausea or vomiting and has been tolerating diet. Patient is afebrile. Patient has a friend at the bedside and is conversing and laughing with friend. Patient appears to be in no acute distress sitting in the chair next to the bed. Social work is following as the patient states that he is homeless and has no money. Guarded prognosis. 04/09/2019 Patient is sitting up in the chair with his legs elevated in no acute distress. Patient's urine culture results came back with E. coli and Proteus mirabilis ESBL. Infectious disease was consulted. Patient IV antibiotics were switched to Zosyn and awaiting infectious disease recommendations. Patient denies any chest pain, shortness of breath, or palpitations at this time. Patient denies any nausea or vomiting and has been tolerating diet. Patient remains afebrile. Patient is elevating the legs and continues to have swelling and edema of the legs. Patient IV Lasix will be transitioned oral Lasix today. Will continue to monitor closely. Guarded prognosis. Objective - Vital Signs Vital signs: Vital Signs Temp 97.4 F L 04/09/19 11:56 Pulse 56 L 04/09/19 11:56 Resp 20 04/09/19 11:56 BP 129/81 04/09/19 11:56 Pulse Ox 97 04/09/19 11:56 Intake & Output 04/08/19 04/09/19 04/09/19 18:59 06:59 18:59 Intake Total 50 590 Balance 50 590 Weight 144 kg Intake: Intake, IV Titration 50 Amount cefTRIAXone 1 gm In 50 Sodium Chloride 0.9% 50 ml @ 100 mls/hr IVPB Q24HR [facility] Rx#:[id number] Oral 590 Other: Voiding Method Urinal Urinal Urinal Incontinent Incontinent Incontinent # Voids 2 - Exam Gen: This is a 68 year old male sitting up in the chair in no acute distress. Vital signs are stable. HEENT: Head is atraumatic, normocephalic. Pupils equal, round. Sclerae is anic teric. NECK: Supple. No JVD. No lymphadenopathy. No thyromegaly. LUNGS: Clear to auscultation. No wheezes or rhonchi. No intercostal retractions. HEART: Regular rate and rhythm. No murmur. ABDOMEN: Soft. Bowel sounds are present. No masses. No tenderness. EXTREMITIES: Bilateral lower extremity edema, 3+. No calf tenderness. NEUROLOGICAL: Patient is awake, alert and oriented x3. Cranial nerves 2 through 12 are grossly intact. - Labs CBC & Chem 7: 04/09/19 09:29 04/09/19 09:29 Labs: Abnormal Lab Results - Last 24 Hours (Table) 04/09/19 04/09/19 Range/Units 09:29 09:29 RBC 3.89 L (4.30-5.90) m/uL Hgb 11.5 L (13.0-17.5) gm/dL Hct 35.0 L (39.0-53.0) % RDW 16.3 H (11.5-15.5) % Chloride 108 H (98-107) mmol/L BUN 30 H (9-20) mg/dL Glucose 104 H (74-99) mg/dL Microbiology - Last 24 Hours (Table) 04/06/19 10:26 Blood Culture - Preliminary Blood No Growth after 72 hours 04/06/19 12:25 Urine Culture - Final Urine,Voided Escherichia coli Proteus mirabilis Assessment and Plan Assessment: Acute urinary tract infection; cultures showing ESBL with E. coli and Proteus mirabilis and antibiotics switched from IV Rocephin to IV Zosyn. Infectious disease was consulted. Acute CHF. Echo done showing an ejection fraction of 55-60%. Patient does have elevated pulmonary edema and vascular congestion, BNP was 1240 Chronic lower extremity swelling, 3+ Generalized weakness Recent left hip fracture. [facility] of the left hip show no fracture or dislocation at this time. Hypertension Hyperlipidemia Osteoarthritis Occasional alcohol abuse morbid obesity with BMI 44.1 DVT prophylaxis with heparin subq Recommendations and discussion: Recommend to continue current medications, management, and symptomatic treatment. PT/OT following. Social work is following and assisting with possible placement as the patient is homeless. Infectious disease was consulted for antibiotic recommendations. Patient may need continued IV antibiotic therapy in the outpatient setting. Continue to monitor vital signs and labs closely. Continue on IV antibiotic therapy of Zosyn. Guarded prognosis. Further recommendations to follow. Possible discharge in 24-48 hours.
[2019-04-09] MEDS: FUROSEMIDE 20 MG TAB PO SCH (16:21)
[2019-04-09 18:29] LABS: Appearance,Urine Clear (Clear); Bilirubin,Urine Negative (Negative); Blood,Urine Trace (Negative); Color,Urine Yellow; Glucose,Urine (UA) Negative (Negative); Ketones,Urine Negative (Negative); Leukocyte Esterase,Urine Moderate (Negative); Nitrite,Urine Negative (Negative); PH, Urine 5.5 (5.0-8.0); Protein,Urine Negative (Negative); RBC,Urine 1 /hpf (0-5); Specific Gravity,Urine 1.021 (1.001-1.035); Squamous Epithelial Cell,Urine <1 /hpf (0-4); Urobilinogen,Urine <2.0 mg/dL (<2.0)
[2019-04-09] MEDS: OLANZapine 5 MG TAB PO SCH (20:36)
[2019-04-09] MEDS: traZODone HCL 50 MG TAB PO SCH (20:36)
[2019-04-09] MEDS: SILVER sulfADIAZINE Cream 400 GM 1 APPLIC APPLIC TOPICAL SCH (20:37)
[2019-04-10] MEDS: HYDROcodone/APAP 5-325MG 1 EACH TAB PO PRN ×5 (01:33→23:18)
[2019-04-10] MEDS: HEPARIN SODIUM,PORCINE 5,000 UNIT/ML 1 ML VIAL SQ SCH ×3 (08:14→23:18)
[2019-04-10] MEDS: PANTOPRAZOLE 40 MG TABLET PO SCH (08:14)
[2019-04-10] MEDS: FUROSEMIDE 20 MG TAB PO SCH ×2 (08:14→15:50)
[2019-04-10] MEDS: CARVEDILOL 12.5 MG TAB PO SCH ×2 (08:14→15:49)
[2019-04-10] MEDS: DULoxetine HCL 30 MG CAPSULE.DR PO SCH (08:14)
[2019-04-10] MEDS: LISINOPRIL 20 MG TAB PO SCH (08:14)
[2019-04-10] MEDS: POTASSIUM CHLORIDE ER 20 MEQ TAB.ER PO SCH (08:14)
[2019-04-10] MEDS: ERTAPENEM 1 GM in SODIUM CHLORIDE 0.9% 50 ML IVPB SCH (08:15)
[2019-04-10] MEDS: SODIUM CHLORIDE 0.9% 1,000 ML IV SCH (13:42)
--- NOTE | 2019-04-10 14:17 | P.CONS ---
History of Present Illness - Reason for Consult Consult date: 04/09/19 ESBL E. coli urinary tract infection Requesting physician: Minerva Zamora - Chief Complaint weakness 2 days - History of Present Illness Patient is a 68-year-old male with a past medical history significant for hypertension hyperlipidemia who was recently discharged from a prison in the [place] with the patient was rehabilitating after femur fracture the patient apparently took a CAB came to [place] on and seems planning on staying with a friend here, the patient felt weak and was unable to get out of his bed to get to the wheelchair, main symptom has been generalized weakness no energy on arrival to the ER he was noticed to have low-grade fever 100.1 patient did have a chest x-ray was negative for any infiltrate x-rays of the pelvis did show some arthritis but no fracture patient did have a positive UA with a diagnosis of urinary tract infection he was started on antibiotic and admitted to the hospital. Culture came up positive for ESBL E. coli that probably this infection disease consultation. The patient currently with no further fever or elevated white count, denies any chest pain or any cough he did have some suprapubic pressure and frequency but no burning or difficulty urination and no flank pain no nausea no vomiting and no diarrhea, the patient did have chronic swelling in both lower extremity with some venous stasis ulcers but denies having any pain into the leg wound area or any worsening drainage Review of Systems Positive point has been mentioned in the HPI rest of the systems are negative Past Medical History Past Medical History: Hyperlipidemia, Hypertension, Osteoarthritis (OA), Skin Disorder Additional Past Medical History / Comment(s): 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, mostly below knees History of Any Multi-Drug Resistant Organisms: None Reported Past Surgical History: No Surgical Hx Reported Past Anesthesia/Blood Transfusion Reactions: No Reported Reaction Past Psychological History: No Psychological Hx Reported Smoking Status: Never smoker Past Alcohol Use History: Occasional Past Drug Use History: None Reported - Past Family History Father Family Medical History: No Reported History Medications and Allergies Home Medications Medication Instructions Recorded Confirmed Type Acetaminophen Tab [Tylenol Tab] 650 mg PO Q4H PRN 04/06/19 04/06/19 History Carvedilol 25 mg PO BID 04/06/19 04/06/19 History DULoxetine HCL [Cymbalta] 90 mg PO DAILY 04/06/19 04/06/19 History Furosemide [Lasix] 20 mg PO BID 04/06/19 04/06/19 History HYDROcodone/APAP 5-325MG [[place] 1 tab PO Q4HR PRN 04/06/19 04/06/19 History 5-325] Lisinopril [Zestril] 20 mg PO DAILY 04/06/19 04/06/19 History Melatonin 3 mg PO HS 04/06/19 04/06/19 History Miconazole Nitrate [Zeasorb AF] 1 applic TOPICAL BID 04/06/19 04/06/19 History OLANZapine [ZyPREXA] 5 mg PO HS 04/06/19 04/06/19 History Pantoprazole Sodium [Protonix] 40 mg PO DAILY 04/06/19 04/06/19 History Polyethylene Glycol 3350 [Miralax] 17 gm PO DAILY PRN 04/06/19 04/06/19 History Potassium Chloride ER [K-Dur 20] 20 meq PO DAILY 04/06/19 04/06/19 History traZODone HCL 50 mg PO HS 04/06/19 04/06/19 History Allergies Allergy/AdvReac Type Severity Reaction Status Date / Time No Known Allergies Allergy Verified 04/06/19 10:45 Physical Exam Vitals: Vital Signs Temp Pulse Resp BP Pulse Ox 04/09/19 05:00 97.3 F L 69 16 137/75 96 04/08/19 21:00 97.7 F 116 H 16 109/71 96 04/08/19 14:35 97 F L 78 22 142/78 94 L Intake and Output 04/08/19 04/09/19 04/09/19 22:59 06:59 14:59 Intake Total 590 Balance 590 Intake: Oral 590 Other: Voiding Method Urinal Urinal Urinal Incontinent Incontinent Incontinent # Voids 1 2 Weight 144 kg GENERAL DESCRIPTION: Elderly male up in the chair, no distress. No tachypnea or accessory muscle of respiration use. HEENT: Shows Pallor , no scleral icterus. Oral mucous membrane is dry. No pharyngeal erythema or thrush NECK: Trachea central, no thyromegaly. LUNGS: Unlabored breathing. Decreased breath sounds at the bases. No wheeze or crackle. HEART: S1, S2, regular rate and rhythm. No loud murmur ABDOMEN: Soft, no tenderness , guarding or rigidity, no organomegaly EXTREMITIES: Bilateral leg swelling with some superficial ulceration no redness or any foul-smelling drainage. SKIN: No rash, no masses palpable. NEUROLOGICAL: The patient is awake, alert, oriented x3, mood and affect normal. Results CBC & Chem 7: 04/09/19 09:29 04/09/19 09:29 Labs: Abnormal Lab Results - Last 24 Hours (Table) 04/09/19 04/09/19 Range/Units 09: 09:29 RBC 3.89 L (4.30-5.90) m/uL Hgb 11.5 L (13.0-17.5) gm/dL Hct 35.0 L (39.0-53.0) % RDW 16.3 H (11.5-15.5) % Chloride 108 H (98-107) mmol/L BUN 30 H (9-20) mg/dL Glucose 104 H (74-99) mg/dL Microbiology - Last 24 Hours (Table) 04/06/19 12:25 Urine Culture - Final Urine,Voided Escherichia coli Proteus mirabilis 04/06/19 10:26 Blood Culture - Preliminary Blood No Growth after 48 hours Assessment and Plan Assessment: 1-patient admitted hospital with generalized weakness which is likely multifactorial in this patient did have low-grade fever and a positive UA with some suprapubic discomfort/pressure likely symptomatic cystitis clinically doubt deep infection or pyelonephritis, and the patient currently with no other clinical focus of infection Plan: 1-we will repeat his UA clean catch as well as urine culture 2-discontinue Zosyn 3-start patient on Invanz 1 g daily We will follow on clinical condition and cultures to further adjust medication if needed Thank you for this consultation will follow this patient with you Time with Patient: Greater than 30
--- NOTE | 2019-04-10 15:06 | P.PN ---
Subjective Progress Note Date: 04/10/19 Principal diagnosis: This is a 68-year-old male who was recently admitted for generalized weakness and UTI and is being closely monitored. PT/OT was consulted as the patient states that he has weakness and was recently at a rehab facility for difficulty in ambulating without support. Patient had an xray of the hips and pelvis showing no acute fracture/dislocation evident in the pelvis or left hip with advanced degenerative changes in both hips. Echo done today shows an EF of 55- 60% with mild aortic and mitral regurgitation. Urine culture shows gram negative bacilli thus far and awaiting finalization at this time. Patient denies any chest pain, shortness of breath, or palpitations at this time. Patient denies any nausea or vomiting and has been tolerating diet. Patient is afebrile. Patient has a friend at the bedside and is conversing and laughing with friend. Patient appears to be in no acute distress sitting in the chair next to the bed. Social work is following as the patient states that he is homeless and has no money. Guarded prognosis. 04/09/2019 Patient is sitting up in the chair with his legs elevated in no acute distress. Patient's urine culture results came back with E. coli and Proteus mirabilis ESBL. Infectious disease was consulted. Patient IV antibiotics were switched to Zosyn and awaiting infectious disease recommendations. Patient denies any chest pain, shortness of breath, or palpitations at this time. Patient denies any nausea or vomiting and has been tolerating diet. Patient remains afebrile. Patient is elevating the legs and continues to have swelling and edema of the legs. Patient IV Lasix will be transitioned oral Lasix today. Will continue to monitor closely. Guarded prognosis. 04/10/2019 Patient is sitting up in the chair in no acute distress. Infectious disease was consulted and a urine with urine culture was reordered and awaiting cultures at this time. Zosyn was discontinued and patient was switched to Invanz IV antibiotic and will continue to monitor closely. Patient denies any chest pain, shortness of breath, or palpitations at this time. Patient denies any nausea or vomiting and has been tolerating diet. Patient remains afebrile. Patient continues to have bilateral lower extremity edema which is chronic. Legs are wrapped with Kerlex at this time. Guarded prognosis Objective - Vital Signs Vital signs: Vital Signs Temp 97.1 F L 04/10/19 13:02 Pulse 77 04/10/19 13:02 Resp 15 04/10/19 13:02 BP 148/79 04/10/19 13:02 Pulse Ox 98 04/10/19 13:02 Intake & Output 04/09/19 04/10/19 04/10/19 18:59 06:59 18:59 Intake Total 100 590 730 Balance 100 590 730 Intake: IV 50 cefTRIAXone 1 gm In 50 Sodium Chloride 0.9% 50 ml @ 100 mls/hr IVPB Q24HR [facility] Rx#:[id number] Intake, IV Titration 50 130 Amount Ertapenem 1 gm In Sodium 50 50 Chloride 0.9% 50 ml @ 100 mls/hr IVPB DAILY [facility] Rx #:[id number] Sodium Chloride 0.9% 1, 80 000 ml @ 20 mls/hr IV . Q24H [facility] Rx#:[id number] Oral 590 600 Other: Voiding Method Urinal Urinal Urinal Incontinent Incontinent Incontinent # Voids 1 2 - Exam Gen: This is a 68 year old male sitting up in the chair in no acute distress. Vital signs are stable. Blood pressure is 121/66, pulse is 72, respirations are 18, temp is 97.3F, oxygen saturation is 96% on room air HEENT: Head is atraumatic, normocephalic. Pupils equal, round. Sclerae is anicteric. NECK: Supple. No JVD. No lymphadenopathy. No thyromegaly. LUNGS: Clear to auscultation. No wheezes or rhonchi. No intercostal retrac tions. HEART: Regular rate and rhythm. No murmur. ABDOMEN: Soft. Bowel sounds are present. No masses. No tenderness. EXTREMITIES: Bilateral lower extremity edema, 3+. No calf tenderness. NEUROLOGICAL: Patient is awake, alert and oriented x3. Cranial nerves 2 through 12 are grossly intact. - Labs CBC & Chem 7: 04/09/19 09:29 04/09/19 09:29 Labs: Abnormal Lab Results - Last 24 Hours (Table) 04/09/19 Range/Units 18:00 Urine Blood Trace H (Negative) Ur Leukocyte Esterase Moderate H (Negative) Microbiology - Last 24 Hours (Table) 04/06/19 10:26 Blood Culture - Preliminary Blood No Growth after 96 hours Assessment and Plan Assessment: Acute urinary tract infection; cultures showing ESBL with E. coli and Proteus mirabilis and antibiotics switched from IV Rocephin to IV Zosyn. Infectious disease is following. Antibiotics were switched to Invanz yesterday. Repeat urinalysis with urine culture was ordered and is currently pending at this time. Acute CHF. Echo done showing an ejection fraction of 55-60%. Patient does have elevated pulmonary edema and vascular congestion, BNP was 1240 Chronic lower extremity swelling, 3+ Generalized weakness Recent [facility] the left hip show no fracture or dislocation at this time. Hypertension Hyperlipidemia Osteoarthritis Occasional alcohol abuse morbid obesity with BMI 44.1 DVT prophylaxis with heparin subq Recommendations and discussion: Recommend to continue current medications, management, and symptomatic t reatment. PT/OT following. Social work is following and assisting with possible placement as the patient is homeless. Infectious disease was consulted for antibiotic recommendations. Patient may need continued IV antibiotic therapy in the outpatient setting. Awaiting repeat urine cultures. Continue to monitor vital signs and labs closely. Continue on IV antibiotic therapy of Invanz. Guarded prognosis. Further recommendations to follow. Possible discharge in 24- 48 hours.
--- NOTE | 2019-04-10 15:12 | CDI ---
Documentation Clarification Form Date: 04/10/2019 2:50:06 PM From: Nichole Bloom RN CCDS Admit Date: 04/08/2019 2:15:00 PM Patient Name: Bart Mendez Visit Number: [id number] Discharge Date: ATTENTION: The Clinical Documentation Specialists (CDI) and [facility] Coding Staff appreciate your assistance in clarifying documentation. Please respond to the clarification below the line at the bottom and electronically sign. The CDI & [facility] Coding staff will review the response and follow-up if needed. Please note: Queries are made part of the Legal Health Record. If you have any questions, please contact the author of this message via ITS. Dr. Minerva Zamora Acute CHF. Echo done showing an ejection fraction of 55% -60% is documented in your progress note 04/09/2019 History/Risk Factors: 68-year-old male with presents to the ED for weakness just released from Rehab. Medical history of Hyperlipidemia, HTN, OA Clinical Indicators: Per Progress note 04/09/2019 Patient does have elevated pulmonary edema and vascular congestion. Chronic lower extremity swelling, 3+ VS/Pulse OX: 142/ 67 92 100.1 16 98% ra BNP: 1240 Echocardiogram Results: Overall left ventricular systolic function is normal with, an EF 55% - 60% Chest X Ray: There may be some early pulmonary edema present. Pulmonary vascular prominence and cardiomegaly is evident. Treatment: Lasix 20mg iv bid then Lasix 20mg po daily, Lisinopril, Coreg, In your professional opinion, can you please clarify the acuity and type of CHF if known? : * Acute Diastolic Heart Failure * Chronic Diastolic Heart Failure * Acute on Chronic Heart Failure * Unable to Determine * Other, please specify (Last Revision: November 2017) Acute on chronic CHF with diastolic dysfunction MTDD
[2019-04-10] MEDS: OLANZapine 5 MG TAB PO SCH (20:19)
[2019-04-10] MEDS: traZODone HCL 50 MG TAB PO SCH (20:19)
[2019-04-10] MEDS: SILVER sulfADIAZINE Cream 400 GM 1 APPLIC APPLIC TOPICAL SCH (20:20)
--- NOTE | 2019-04-11 06:20 | PN ---
PROGRESS NOTE DATE OF SERVICE: 04/10/2019 REASON FOR FOLLOWUP: ESBL E coli urinary tract infection. INTERVAL HISTORY: The patient is currently afebrile. The patient has been breathing comfortably. Still feeling weak and tired. No energy. No chest pain. No abdominal pain or pain to the lower extremities. PHYSICAL EXAMINATION: On examination, blood pressure 126/75 with a pulse of 67, temperature 97. He is 98% on room air. General description is an elderly male up in the chair in no distress. RESPIRATORY SYSTEM: Unlabored breathing with decreased breath sounds at the bases. HEART: S1, S2. Regular rate and rhythm. ABDOMEN: Soft, no tenderness. Lower extremity with chronic swelling, no significant drainage was noticed. LABS: Repeat urine is not significantly positive with only 3 WBC. DIAGNOSTIC IMPRESSION AND PLAN: Patient with ESBL Escherichia coli and Proteus urinary tract infection with minimal urinary symptoms. The patient is currently covered with Invanz. Waiting for the repeat culture to finalized to determine discharge antibiotics. Continue supportive care. MMODL / IJN: [id number] /
[2019-04-11] MEDS: LISINOPRIL 20 MG TAB PO SCH (08:02)
[2019-04-11] MEDS: POTASSIUM CHLORIDE ER 20 MEQ TAB.ER PO SCH (08:02)
[2019-04-11] MEDS: CARVEDILOL 12.5 MG TAB PO SCH ×2 (08:02→16:57)
[2019-04-11] MEDS: DULoxetine HCL 30 MG CAPSULE.DR PO SCH (08:02)
[2019-04-11] MEDS: FUROSEMIDE 20 MG TAB PO SCH ×2 (08:02→16:57)
[2019-04-11] MEDS: PANTOPRAZOLE 40 MG TABLET PO SCH (08:02)
[2019-04-11] MEDS: HYDROcodone/APAP 5-325MG 1 EACH TAB PO PRN ×4 (08:03→20:30)
[2019-04-11] MEDS: HEPARIN SODIUM,PORCINE 5,000 UNIT/ML 1 ML VIAL SQ SCH ×2 (08:03→16:57)
[2019-04-11] MEDS: ERTAPENEM 1 GM in SODIUM CHLORIDE 0.9% 50 ML IVPB SCH (08:03)
[2019-04-11] MEDS: SODIUM CHLORIDE 0.9% 1,000 ML IV SCH (11:37)
--- NOTE | 2019-04-11 14:53 | PN ---
PROGRESS NOTE DATE OF SERVICE: 04/11/2019 REASON FOR FOLLOWUP: ESBL E coli urinary tract infection. INTERVAL HISTORY: The patient is currently afebrile. He is feeling slightly better, . No chest pain. No cough. No abdominal pain or any worsening urinary symptoms, no diarrhea. PHYSICAL EXAMINATION: Blood pressure 132/77 with a pulse of 73, temperature 96.9, he is 96% on room air. General description is an elderly male up in the chair, in no distress. RESPIRATORY SYSTEM: Unlabored breathing, clear to auscultation anteriorly. HEART: S1, S2. Regular rate and rhythm. ABDOMEN: Soft no tenderness. LABS: No new labs have been obtained today. Repeat urine is not significantly positive, unfortunately cultures were not done. DIAGNOSTIC IMPRESSION AND PLAN: Patient with ESBL E coli urinary tract infection with underlying infection seemed to have been adequate, really possibly cystitis. Recommend keeping IV Invanz and discontinue on discharge. Continue supportive care. MMODL / IJN: [id number] /
--- NOTE | 2019-04-11 15:12 | P.PN ---
Subjective Progress Note Date: 04/11/19 Principal diagnosis: This is a 68-year-old male who was recently admitted for generalized weakness and UTI and is being closely monitored. PT/OT was consulted as the patient states that he has weakness and was recently at a rehab facility for difficulty in ambulating without support. Patient had an xray of the hips and pelvis showing no acute fracture/dislocation evident in the pelvis or left hip with advanced degenerative changes in both hips. Echo done today shows an EF of 55- 60% with mild aortic and mitral regurgitation. Urine culture shows gram negative bacilli thus far and awaiting finalization at this time. Patient denies any chest pain, shortness of breath, or palpitations at this time. Patient denies any nausea or vomiting and has been tolerating diet. Patient is afebrile. Patient has a friend at the bedside and is conversing and laughing with friend. Patient appears to be in no acute distress sitting in the chair next to the bed. Social work is following as the patient states that he is homeless and has no money. Guarded prognosis. 04/09/2019 Patient is sitting up in the chair with his legs elevated in no acute distress. Patient's urine culture results came back with E. coli and Proteus mirabilis ESBL. Infectious disease was consulted. Patient IV antibiotics were switched to Zosyn and awaiting infectious disease recommendations. Patient denies any chest pain, shortness of breath, or palpitations at this time. Patient denies any nausea or vomiting and has been tolerating diet. Patient remains afebrile. Patient is elevating the legs and continues to have swelling and edema of the legs. Patient IV Lasix will be transitioned oral Lasix today. Will continue to monitor closely. Guarded prognosis. 04/10/2019 Patient is sitting up in the chair in no acute distress. Infectious disease was consulted and a urine with urine culture was reordered and awaiting cultures at this time. Zosyn was discontinued and patient was switched to Invanz IV antibiotic and will continue to monitor closely. Patient denies any chest pain, shortness of breath, or palpitations at this time. Patient denies any nausea or vomiting and has been tolerating diet. Patient remains afebrile. Patient continues to have bilateral lower extremity edema which is chronic. Legs are wrapped with Kerlex at this time. Guarded prognosis 04/11/2019 Age and is sitting up in the chair with legs elevated in no acute distress. Urinalysis was done with reflex and culture was not sent as the reflex did not warrant a culture. A culture was ordered and is pending at this time. Infectious disease is following. Patient is to continue on Invanz at this time. No acute changes overnight. Patient denies any chest pain, shortness of breath, or palpitations at this time. Eyes any nausea or vomiting and is tolerating diet. Patient continues to be afebrile. Guarded prognosis. Objective - Vital Signs Vital signs: Vital Signs Temp 97.0 F L 04/11/19 14:20 Pulse 67 04/11/19 14:20 Resp 16 04/11/19 14:20 BP 116/63 04/11/19 14:20 Pulse Ox 98 04/11/19 14:20 Intake & Output 04/10/19 04/11/19 04/11/19 18:59 06:59 18:59 Intake Total 222 751 6758 Output Total 403 Balance 730 240 797 Weight 146 kg 145.1 kg Intake: Intake, IV Titration 130 Amount Ertapenem 1 gm In Sodium 50 Chloride 0.9% 50 ml @ 100 mls/hr IVPB DAILY [facility] Rx #:[id number] Sodium Chloride 0.9% 1, 80 000 ml @ 20 mls/hr IV . Q24H [facility] Rx#:[id number] Oral 144 550 9828 Output: Urine 400 Urine/Stool Mix 3 Other: Voiding Method Urinal Urinal Urinal Incontinent Incontinent # Voids 2 1 1 - Exam Gen: This is a 68 year old male sitting up in the chair in no acute distress. Vital signs are stable. Blood pressure is 116/63, pulse is 67, respirations are 16, temp is 97.0F, oxygen saturation is 98% on room air HEENT: Head is atraumatic, normocephalic. Pupils equal, round. Sclerae is anicteric. NECK: Supple. No JVD. No lymphadenopathy. No thyromegaly. LUNGS: Clear to auscultation. No wheezes or rhonchi. No intercostal retraction s. HEART: Regular rate and rhythm. No murmur. ABDOMEN: Soft. Bowel sounds are present. Obese. No masses. No tenderness. EXTREMITIES: Bilateral lower extremity edema, 3+. No calf tenderness. NEUROLOGICAL: Patient is awake, alert and oriented x3. Cranial nerves 2 through 12 are grossly intact. - Labs CBC & Chem 7: 04/09/19 09:29 04/09/19 09:29 Labs: Microbiology - Last 24 Hours (Table) 04/06/19 10:26 Blood Culture - Preliminary Blood No Growth after 120 hours Assessment and Plan Assessment: Acute urinary tract infection; cultures showing ESBL with E. coli and Proteus mirabilis and antibiotics switched from IV Rocephin to IV Zosyn. Infectious disease is following. Antibiotics were switched to Invanz yesterday. Repeat urinalysis with urine culture was ordered and is currently pending at this time. Acute CHF. Echo done showing an ejection fraction of 55-60%. Patient does have elevated pulmonary edema and vascular congestion, BNP was 1240 Chronic lower extremity swelling, 3+ Generalized weakness Recent left hip fracture. Was at [place] rehab. xray of the left hip show no fracture or dislocation at this time. Hypertension Hyperlipidemia Osteoarthritis Occasional alcohol abuse morbid obesity with BMI 44.1 DVT prophylaxis with heparin subq Recommendations and discussion: Recommend to continue current medications, management, and symptomatic treatment. PT/OT following. Social work is following and assisting with possible placement as the patient is homeless. Infectious disease was consulted for antibiotic recommendations. Awaiting repeat urine cultures. Continue to monitor vital signs and labs closely. Continue on IV antibiotic therapy of Invanz. Guarded prognosis. Further recommendations to follow. Possible discharge in 24-48 hours.
[2019-04-11] MEDS: OLANZapine 5 MG TAB PO SCH (20:30)
[2019-04-11] MEDS: traZODone HCL 50 MG TAB PO SCH (20:30)
[2019-04-11] MEDS: SILVER sulfADIAZINE Cream 400 GM 1 APPLIC APPLIC TOPICAL SCH (20:31)
[2019-04-12] MEDS: HEPARIN SODIUM,PORCINE 5,000 UNIT/ML 1 ML VIAL SQ SCH ×4 (00:14→23:30)
[2019-04-12] MEDS: HYDROcodone/APAP 5-325MG 1 EACH TAB PO PRN ×5 (01:43→21:13)
[2019-04-12] MEDS: PANTOPRAZOLE 40 MG TABLET PO SCH (07:24)
[2019-04-12] MEDS: POTASSIUM CHLORIDE ER 20 MEQ TAB.ER PO SCH (07:25)
[2019-04-12] MEDS: LISINOPRIL 20 MG TAB PO SCH (07:25)
[2019-04-12] MEDS: CARVEDILOL 12.5 MG TAB PO SCH ×2 (07:25→16:09)
[2019-04-12] MEDS: DULoxetine HCL 30 MG CAPSULE.DR PO SCH (07:25)
[2019-04-12] MEDS: FUROSEMIDE 20 MG TAB PO SCH ×2 (07:26→16:09)
[2019-04-12] MEDS: ERTAPENEM 1 GM in SODIUM CHLORIDE 0.9% 50 ML IVPB SCH (08:08)
[2019-04-12] MEDS: IBUPROFEN 600 MG TAB PO PRN ×2 (12:25→18:25)
[2019-04-12] MEDS: SODIUM CHLORIDE 0.9% 1,000 ML IV SCH (13:30)
--- NOTE | 2019-04-12 14:09 | P.DS ---
Providers Date of admission: 04/08/19 14:15 Expected date of discharge: 04/12/19 Attending physician: Minerva Zamora Consults: 04/09/19 08:55 Consult Physician Urgent Consulting Provider: Laura Chappell Consult Reason/Comments: ESBL/ecoli UTI Do you want consulting provider notified?: Yes Primary care physician: Stated None Hospital Course: Final diagnoses Acute urinary tract infection Acute CHF Chronic lower extremity swelling Generalized weakness Recent left hip fracture Hypertension Hyperlipidemia Osteoarthritis Occasional alcohol abuse Morbid obesity with a BMI of 44.1 DVT prophylaxis Discharge disposition Patient is being discharged in a stable condition with guarded prognosis to [facility] and will be working with PT/OT. History of present illness This is a 68-year-old male who was recently admitted for generalized weakness any UTI and was being closely monitored. Patient states that he was at a rehab facility in [place] after a femur fracture of the left side recently. Infectious disease is following. Patient was given IV antibiotic therapy and will not require antibiotics upon discharge. Patient continues to have bilateral lower extremity swelling which has been chronic with venous stasis changes and will need to continue with Silvadene cream to the areas and Kerlex and will also need to continue to keep legs elevated while at rest. Patient denies any shortness of breath, chest pain, or palpitations at this time. Patient denies any nausea or vomiting and has been tolerating diet. Patient denies any dysuria or burning with urination. Patient has been urinating with no difficulties. Patient has remained afebrile. Currently patient is stable with much improvement. Guarded prognosis. Patient will need to follow-up with primary care provider upon discharge. On exam vital signs are stable. Temp is 97F, pulse is 63, respirations are 15, blood pressure is 120/70, oxygen saturation is 99% on room air. Cardio S1 and S2 are muffled. Respiratory system shows clear to auscultation. Abdomen is soft, obese, and non-tender. Nervous system shows no focal deficits with mild diffuse weakness. Please refer to medication reconciliation sheet for a list of medications. Patient Condition at Discharge: Fair Plan - Discharge Summary Discharge Rx Participant: Yes New Discharge Prescriptions: New SILVER sulfADIAZINE Cream [Silvadene 1% Cream] 1 applic TOPICAL HS #1 applic Continue Potassium Chloride ER [K-Dur 20] 20 meq PO DAILY Polyethylene Glycol 3350 [Miralax] 17 gm PO DAILY PRN PRN Reason: Constipation OLANZapine [ZyPREXA] 5 mg PO HS Miconazole Nitrate [Zeasorb AF] 1 applic TOPICAL BID Melatonin 3 mg PO HS Lisinopril [Zestril] 20 mg PO DAILY Furosemide [Lasix] 20 mg PO BID DULoxetine HCL [Cymbalta] 90 mg PO DAILY Carvedilol 25 mg PO BID Acetaminophen Tab [Tylenol] 650 mg PO Q4H PRN PRN Reason: Pain traZODone HCL 50 mg PO HS Pantoprazole Sodium [Protonix] 40 mg PO DAILY HYDROcodone/APAP 5-325MG [Randle 5-325] 1 tab PO Q4HR PRN #12 tab PRN Reason: Pain Discharge Medication List Acetaminophen Tab [Tylenol] 650 mg PO Q4H PRN 04/06/19 [History] Carvedilol 25 mg PO BID 04/06/19 [History] DULoxetine HCL [Cymbalta] 90 mg PO DAILY 04/06/19 [History] Furosemide [Lasix] 20 mg PO BID 04/06/19 [History] Lisinopril [Zestril] 20 mg PO DAILY 04/06/19 [History] Melatonin 3 mg PO HS 04/06/19 [History] Miconazole Nitrate [Zeasorb AF] 1 applic TOPICAL BID 04/06/19 [History] OLANZapine [ZyPREXA] 5 mg PO HS 04/06/19 [History] Pantoprazole Sodium [Protonix] 40 mg PO DAILY 04/06/19 [History] Polyethylene Glycol 3350 [Miralax] 17 gm PO DAILY PRN 04/06/19 [History] Potassium Chloride ER [K-Dur 20] 20 meq PO DAILY 04/06/19 [History] traZODone HCL 50 mg PO HS 04/06/19 [History] HYDROcodone/APAP 5-325MG [Randle 5-325] 1 tab PO Q4HR PRN #12 tab 04/12/19 [Rx] SILVER sulfADIAZINE Cream [Silvadene 1% Cream] 1 applic TOPICAL HS #1 applic 04/12/19 [Rx] Follow up Appointment(s)/Referral(s): None,Stated [Primary Care Provider] - 1-2 days Patient Instructions/Handouts: Silver Sulfadiazine (On the skin), Hydrocodone/Acetaminophen (By mouth), Urinary Tract Infection in Men (DC), Fever in Adults (ED) Activity/Diet/Wound Care/Special Instructions: Activity as tolerated Continue current diet Continue to elevate legs while at rest Continue to apply Silvadene cream once daily to the legs and cover with Kerlex Follow-up with primary care provider once discharged Discharge Disposition: TRANSFER TO SNF/ECF
--- NOTE | 2019-04-12 14:11 | PN ---
PROGRESS NOTE DATE OF SERVICE: 04/12/2019 REASON FOR FOLLOWUP: ESBL E coli urinary tract infection. INTERVAL COURSE: The patient is currently afebrile. Patient has been breathing comfortably. The patient denies having any chest pain or shortness of breath. Denies any burning or frequency of urine or difficulty urination. No diarrhea. PHYSICAL EXAMINATION: On examination, blood pressure 120/70 with a pulse of 63, temperature 97. He is 99% on room air. General description is an elderly male up in the chair in no distress. RESPIRATORY SYSTEM: Unlabored breathing, clear to auscultation anteriorly. HEART: S1, S2. Regular rate and rhythm. ABDOMEN: Soft, no tenderness. LABS: Hemoglobin 11.5, white count 4.7. No new blood work has been done today. DIAGNOSTIC IMPRESSION AND PLAN: Patient with ESBL Escherichia coli urinary tract infection, possible cystitis. The patient at this time to continue with Invanz which can be on discharge and monitor clinical course closely. Continue supportive care. MMODL / IJN: [id number] /
[2019-04-12] MEDS: SILVER sulfADIAZINE Cream 400 GM 1 APPLIC APPLIC TOPICAL SCH (16:10)
[2019-04-12] MEDS: traZODone HCL 50 MG TAB PO SCH (21:13)
[2019-04-12] MEDS: OLANZapine 5 MG TAB PO SCH (21:13)
[2019-04-13] MEDS: HYDROcodone/APAP 5-325MG 1 EACH TAB PO PRN ×4 (03:59→21:00)
[2019-04-13] MEDS: IBUPROFEN 600 MG TAB PO PRN ×2 (09:10→16:45)
[2019-04-13] MEDS: LISINOPRIL 20 MG TAB PO SCH (09:10)
[2019-04-13] MEDS: CARVEDILOL 12.5 MG TAB PO SCH ×2 (09:11→16:44)
[2019-04-13] MEDS: PANTOPRAZOLE 40 MG TABLET PO SCH (09:11)
[2019-04-13] MEDS: FUROSEMIDE 20 MG TAB PO SCH ×2 (09:11→16:44)
[2019-04-13] MEDS: HEPARIN SODIUM,PORCINE 5,000 UNIT/ML 1 ML VIAL SQ SCH ×2 (09:12→16:43)
[2019-04-13] MEDS: DULoxetine HCL 30 MG CAPSULE.DR PO SCH (09:12)
[2019-04-13] MEDS: POTASSIUM CHLORIDE ER 20 MEQ TAB.ER PO SCH (09:12)
[2019-04-13] MEDS: ERTAPENEM 1 GM in SODIUM CHLORIDE 0.9% 50 ML IVPB SCH (09:13)
[2019-04-13 12:19] VITALS: BMI 48.8
[2019-04-13] MEDS: SODIUM CHLORIDE 0.9% 1,000 ML IV SCH (14:02)
--- NOTE | 2019-04-13 15:00 | PN ---
PROGRESS NOTE DATE OF SERVICE: 04/13/2019 REASON FOR FOLLOWUP: ESBL E. coli urinary tract infection. INTERVAL HISTORY: The patient is currently afebrile. The patient has been breathing comfortably, feeling slightly weak though. No chest pain. No abdominal pain. No diarrhea and no burning or frequency of urine. PHYSICAL EXAMINATION: Blood pressure 150/74 with a pulse of 68, temperature 97.6. He is 95% on 2 L nasal cannula. General description is an elderly male up in the chair in no distress. Respiratory system: Unlabored breathing, clear to auscultation anteriorly. Heart S1, S2. Regular rate and rhythm. Abdomen is soft, no tenderness. LABS: Repeat urine culture negative. DIAGNOSTIC IMPRESSION AND PLAN: Patient with ESBL E. coli urinary tract infection that has been adequately treated. Currently no evidence of any deep infection. Invanz to be discontinued on discharge. No need for antibiotic on discharge as previously mentioned. Continue supportive care. MMODL / IJN: [id number] /
[2019-04-13] MEDS: traZODone HCL 50 MG TAB PO SCH (21:00)
[2019-04-13] MEDS: SILVER sulfADIAZINE Cream 400 GM 1 APPLIC APPLIC TOPICAL SCH (21:00)
[2019-04-13] MEDS: OLANZapine 5 MG TAB PO SCH (21:00)
--- NOTE | 2019-04-13 22:18 | PN ---
PROGRESS NOTE DATE OF SERVICE: 04/13/2019. HISTORY: This 68-year-old gentleman who was admitted with multiple medical problems including UTI and CHF is being closely monitored. The patient was supposed to be admitted to a nursing facility today but apparently only RNs are working today. Please refer to the bottle caser notes for further details. No chest pain. No palpitations. No fever. The patient is complaining of weakness. EXAM: Alert and oriented x3. Pulse 69, blood pressure 130/70, respiration 17, temperature 97.2, pulse ox 94% on room air. HEENT: Conjunctivae normal. NECK: No JVD. CARDIOVASCULAR: S1 and S2 muffled. LUNGS: Breath sounds diminished in the bases. No rhonchi. No crackles. ABDOMEN: Soft. LEGS: No edema. 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 LABS: WBC 4.2, hemoglobin 11.5. Microbiology showed the urine cultures, Proteus mirabilis, ESBL E coli. ASSESSMENT: 1. Acute urinary tract infection with ESBL E coli and Proteus mirabilis. 2. Congestive heart failure acute exacerbation. 3. Chronic lower extremity swelling. 4. Generalized weakness. 5. Recent left hip fracture. 6. Hypertension. 7. Hyperlipidemia. 8. History of degenerative joint disease. 9. History of ETOH. 10.Morbid obesity BMI of 44.1. 11.DVT prophylaxis. RECOMMENDATIONS AND DISCUSSION: Recommend to continue current management and continue with symptomatic treatment. Continue with current antibiotics. Patient is on IV. Closely monitor with multiple consultants. Guarded prognosis. Further recommendations to follow. MMODL / IJN: [id number] / [place]
[2019-04-14] MEDS: HEPARIN SODIUM,PORCINE 5,000 UNIT/ML 1 ML VIAL SQ SCH ×4 (00:12→23:18)
[2019-04-14] MEDS: ERTAPENEM 1 GM in SODIUM CHLORIDE 0.9% 50 ML IVPB SCH (09:44)
[2019-04-14] MEDS: IBUPROFEN 600 MG TAB PO PRN ×3 (09:44→22:15)
[2019-04-14] MEDS: HYDROcodone/APAP 5-325MG 1 EACH TAB PO PRN ×3 (09:45→20:06)
[2019-04-14] MEDS: CARVEDILOL 12.5 MG TAB PO SCH ×2 (09:46→18:20)
[2019-04-14] MEDS: POTASSIUM CHLORIDE ER 20 MEQ TAB.ER PO SCH (09:46)
[2019-04-14] MEDS: PANTOPRAZOLE 40 MG TABLET PO SCH (09:46)
[2019-04-14] MEDS: LISINOPRIL 20 MG TAB PO SCH (09:46)
[2019-04-14] MEDS: FUROSEMIDE 20 MG TAB PO SCH ×2 (09:46→15:51)
[2019-04-14] MEDS: DULoxetine HCL 30 MG CAPSULE.DR PO SCH (09:48)
[2019-04-14] MEDS: SODIUM CHLORIDE 0.9% 1,000 ML IV SCH (12:52)
[2019-04-14] MEDS: OLANZapine 5 MG TAB PO SCH (20:06)
[2019-04-14] MEDS: traZODone HCL 50 MG TAB PO SCH (20:07)
[2019-04-14] MEDS: SILVER sulfADIAZINE Cream 400 GM 1 APPLIC APPLIC TOPICAL SCH (20:07)
--- NOTE | 2019-04-14 20:53 | PN ---
PROGRESS NOTE DATE OF SERVICE: 04/14/2019 This 68-year-old gentleman who was admitted with multiple medical issues with acute urinary tract infection with ESBL E coli and Proteus mirabilis, is awaiting ECF placement. No chest pain. No palpitations. No fever. EXAM: Alert and oriented x3. The pulse is 76, blood pressure 130/67, respiration 18, temperature 97.4, pulse ox 97% on room air HEENT: Conjunctivae normal. Oral mucosa moist. NECK: No jugular venous distention. No lymph node enlargement. CARDIOVASCULAR: S1, S2. RESPIRATORY: Diminished breath sounds at the bases. A few scattered rhonchi, no crackles. ABDOMEN: Soft, nontender. LEGS: No swelling. NERVOUS SYSTEM: No focal deficits. LABS: WBC 4.2, hemoglobin 11.5. UA noted. ASSESSMENT: 1. Acute urinary tract infection with ESBL E coli and Proteus mirabilis, present on admission. 2. Congestive heart failure acute exacerbation with acute on chronic diastolic dysfunction, ejection fraction 50-60 percent. 3. Chronic lower extremity swelling. 4. Generalized weakness. 5. History of recent left hip fracture. 6. Hypertension. 7. Hyperlipidemia. 8. History of degenerative joint disease. 9. History of ETOH. 10.Gait dysfunction. 11.Morbid obesity with BMI of 44.1. 12.DVT prophylaxis. RECOMMENDATIONS AND DISCUSSION: Recommend to continue current medications, continue to monitor, continue symptomatic treatment. PT/OT evaluation. Repeat labs. Closely monitor. Guarded prognosis. Further recommendations to follow. XAVIER / ELAYNE: [id number] /
--- NOTE | 2019-04-14 23:14 | PN ---
PROGRESS NOTE DATE OF SERVICE: 04/14/2019 REASON FOR FOLLOWUP: ESBL E coli urinary tract infection. INTERVAL HISTORY: The patient is currently afebrile. Patient has been breathing comfortably. The patient denies having any chest pain. No shortness, no cough. No nausea, vomiting, no abdominal pain, no diarrhea. PHYSICAL EXAMINATION: Blood pressure is 136/67 with a pulse of 76, temperature 97.4. He is 97% on room air. General description is an elderly male up in the chair in no distress. Respiratory system: Unlabored breathing, clear to auscultation anteriorly. Heart S1, S2. Regular rate and rhythm. Abdomen soft, no tenderness. Legs are currently wrapped up. No obvious drainage on dressing. LABS: No new labs have been obtained today and repeat urine culture negative. DIAGNOSTIC IMPRESSION AND PLAN: Patient with ESBL E coli urinary tract infection, likely cystitis. Clinically doubt deep infection. The patient seemed to have shown clinical improvement with a repeat urine culture has been negative so far. Plan at this time is to continue with Invanz which can be discontinued on discharge and continue supportive care. MMODL / IJN: [id number] /
[2019-04-15] MEDS: HYDROcodone/APAP 5-325MG 1 EACH TAB PO PRN ×4 (00:16→21:04)
[2019-04-15] MEDS: PANTOPRAZOLE 40 MG TABLET PO SCH (08:44)
[2019-04-15] MEDS: HEPARIN SODIUM,PORCINE 5,000 UNIT/ML 1 ML VIAL SQ SCH ×3 (08:44→23:30)
[2019-04-15] MEDS: ERTAPENEM 1 GM in SODIUM CHLORIDE 0.9% 50 ML IVPB SCH (08:44)
[2019-04-15] MEDS: DULoxetine HCL 30 MG CAPSULE.DR PO SCH (08:45)
[2019-04-15] MEDS: POTASSIUM CHLORIDE ER 20 MEQ TAB.ER PO SCH (08:45)
[2019-04-15] MEDS: CARVEDILOL 12.5 MG TAB PO SCH ×2 (08:45→16:59)
[2019-04-15] MEDS: LISINOPRIL 20 MG TAB PO SCH (08:45)
[2019-04-15] MEDS: IBUPROFEN 600 MG TAB PO PRN ×2 (08:46→16:59)
[2019-04-15] MEDS: FUROSEMIDE 20 MG TAB PO SCH ×2 (08:46→16:59)
[2019-04-15] MEDS: SODIUM CHLORIDE 0.9% 1,000 ML IV SCH (13:56)
--- NOTE | 2019-04-15 18:02 | PN ---
PROGRESS NOTE DATE OF SERVICE: 04/15/2019 This 68-year-old gentleman who was admitted with acute urinary tract infection with ESBL E coli is being closely monitored. The patient is also evaluating ECF. The patient is homeless currently. No chest pain. No palpitations. No fever. EXAM: Alert and oriented x3. Pulse 77, blood pressure 120/68, respiration 17, temperature is 97.1, pulse ox 98% on room air HEENT: Conjunctivae normal. Oral mucosa moist. NECK: No jugular venous distention. No lymph node enlargement. CARDIOVASCULAR: S1, S2. RESPIRATORY: Diminished breath sounds at the bases. A few scattered rhonchi, no crackles. ABDOMEN: Soft, nontender. No mass palpable. LEGS: No edema, no swelling. NERVOUS SYSTEM: No focal deficits. LABS: WBC 4.2, hemoglobin 11.2, sodium 142, potassium 4.3. UA noted. ASSESSMENT: 1. Acute urinary tract infection with ESBL E coli and Proteus mirabilis, present on admission. 2. Congestive heart failure acute exacerbation acute on chronic diastolic dysfunction, ejection fraction 50-60 percent. 3. Chronic lower extremity swelling. 4. Generalized weakness. 5. History of recent left hip fracture. 6. Hypertension. 7. Hyperlipidemia. 8. History of degenerative joint disease. 9. History of ETOH. 10.Gait dysfunction. 11.Morbid obesity with BMI of 44.1. 12.DVT prophylaxis. RECOMMENDATIONS AND DISCUSSION: Recommend to continue current medications, continue management and continue symptomatic treatment. Otherwise, at this time, continue the antibiotics and ECF rehab. Further recommendations to follow. MMODL / IJN: [id number] /
[2019-04-15] MEDS: OLANZapine 5 MG TAB PO SCH (21:02)
[2019-04-15] MEDS: traZODone HCL 50 MG TAB PO SCH (21:02)
[2019-04-15] MEDS: SILVER sulfADIAZINE Cream 400 GM 1 APPLIC APPLIC TOPICAL SCH (21:02)
--- NOTE | 2019-04-16 02:59 | PN ---
PROGRESS NOTE DATE OF SERVICE: 04/15/2019 REASON FOR FOLLOWUP: ESBL E coli urinary tract infection. INTERVAL HISTORY: The patient is currently afebrile, has been breathing comfortably. Denies having any chest pain or any cough. No abdominal pain. No diarrhea. No urinary symptoms. PHYSICAL EXAMINATION: Blood pressure is 126/50 with a pulse of 77, temperature 97.1. He is 98% on room air. General description is an elderly male lying in bed in no distress. Respiratory system: Unlabored breathing, clear to auscultation anteriorly. Heart S1, S2. Regular rate and rhythm. Abdomen soft, no tenderness. LABS: No new labs have been obtained. DIAGNOSTIC IMPRESSION AND PLAN: Patient with ESBL E coli urinary tract infection which has been adequately treated, received about a week of IV Invanz, which will be discontinued as repeat culture has been negative and monitor the patient closely off antibiotic therapy. MMODL / IJN: [id number] /
[2019-04-16] MEDS: HYDROcodone/APAP 5-325MG 1 EACH TAB PO PRN (07:52)
[2019-04-16] MEDS: PANTOPRAZOLE 40 MG TABLET PO SCH (07:52)
[2019-04-16] MEDS: IBUPROFEN 600 MG TAB PO PRN (07:52)
[2019-04-16] MEDS: CARVEDILOL 12.5 MG TAB PO SCH (07:53)
[2019-04-16] MEDS: POTASSIUM CHLORIDE ER 20 MEQ TAB.ER PO SCH (07:53)
[2019-04-16] MEDS: FUROSEMIDE 20 MG TAB PO SCH (07:53)
[2019-04-16] MEDS: DULoxetine HCL 30 MG CAPSULE.DR PO SCH (07:54)
[2019-04-16] MEDS: HEPARIN SODIUM,PORCINE 5,000 UNIT/ML 1 ML VIAL SQ SCH (07:54)
[2019-04-16 12:10] VITALS: BP 121/66; PULSE 66; RESP 18; TEMP 97.8
[2019-04-16] MEDS: LISINOPRIL 20 MG TAB PO SCH (12:44)
--- NOTE | 2019-04-16 17:09 | PN ---
PROGRESS NOTE DATE OF SERVICE: 04/16/2019 REASON FOR FOLLOWUP: ESBL E coli urinary tract infection. INTERVAL HISTORY: The patient is currently afebrile. The patient has been breathing comfortably. Denies having any chest pain or any cough. No nausea, no vomiting, no abdominal pain and no diarrhea. No urinary symptoms. PHYSICAL EXAMINATION: Blood pressure 121/66 with a pulse of 66, temperature 97.8. He is 97% on room air. General description is an elderly male up in the chair in no distress. RESPIRATORY SYSTEM: Unlabored breathing. Clear to auscultation anteriorly. HEART: S1, S2. Regular rate and rhythm. ABDOMEN: Soft. No tenderness. Legs are currently wrapped up. No obvious drainage on the dressing. DIAGNOSTIC IMPRESSION AND PLAN: Patient admitted to hospital with multiple symptoms. He does have a component of ESBL E coli UTI that has been adequately treated. Repeat urine has been negative. No need for any antibiotic on discharge. MMODL / IJN: [id number] /
--- NOTE | 2019-04-17 06:38 | DS ---
DISCHARGE SUMMARY DISCHARGE ADDENDUM: This 68-year-old gentleman admitted with multiple UTI with E coli is being closely monitored at this time. The patient has been discharged to [facility] in a stable condition with guarded prognosis. Please refer to the previous dictated dictation for list of diagnosis and list of medications. Overall, stable condition. Prognosis guarded. Total time taken is 35 minutes. On exam, vitals are stable. CARDIOVASCULAR: S1, S2 muffled. ABDOMEN: Soft. NERVOUS SYSTEM: No focal deficits. MMODL / IJN: [id number] / MTDD
== END 2019-04-16 14:33 | DRG 689 ==
LOC: EC 10:11 → 3NMEDONC 13:41 → OBSVTOIN 04-08 14:15 → 3NMEDONC 04-09 14:09
PROVIDERS: ADMIT Internal Medicine; ATTEND Internal Medicine
DX: N30.90 Cystitis, unspecified without hematuria (principal); I50.33 Acute on chronic diastolic (congestive) heart failure; Z68.41 Body mass index [BMI] 40.0-44.9, adult; L03.116 Cellulitis of left lower limb; L03.115 Cellulitis of right lower limb; I11.0 Hypertensive heart disease with heart failure; Z16.12 Extended spectrum beta lactamase (ESBL) resistance; S72.002D Fracture of unspecified part of neck of left femur, subsequent encounter for closed fracture with routine healing; E66.01 Morbid (severe) obesity due to excess calories; B96.20 Unspecified Escherichia coli [E. coli] as the cause of diseases classified elsewhere; B96.4 Proteus (mirabilis) (morganii) as the cause of diseases classified elsewhere; E78.5 Hyperlipidemia, unspecified; F10.10 Alcohol abuse, uncomplicated; I08.0 Rheumatic disorders of both mitral and aortic valves; I87.8 Other specified disorders of veins; M19.90 Unspecified osteoarthritis, unspecified site; Z59.0 Homelessness; Z79.899 Other long term (current) drug therapy; Z87.440 Personal history of urinary (tract) infections
CPT/HCPCS: 36415; 71046; 73502; 80048; 80053; 81001; 83605; 83735; 83880; 84443; 84484; 85025; 85610; 85730; 87040; 87077; 87086; 87186; 93005; 93306; 96374; 99285